=== PATIENT | female | born 1965 | race Caucasian/White ===

== ENCOUNTER 2021-10-23 08:30 | Inpatient (IN) ==
[2021-10-23] MEDS ORDERED: SODIUM CHLORIDE 0.9% 1000ML 1,000 ML IV ONE ×2 (09:18)
[2021-10-23] MEDS ORDERED: PIPERACILLIN/TAZOBACTAM 4.5 GM/120 ML BAG IV STA (09:25)
--- NOTE | 2021-10-23 09:39 | XRay Report ---
XR chest 1V portable CLINICAL HISTORY: SEPSIS. Evaluate cardiopulmonary status COMPARISON STUDY: No previous studies for comparison. TECHNIQUE: 1 view of the chest FINDINGS: Single frontal view of the chest demonstrates the cardiomediastinal silhouette to be within normal li mits. The lungs are clear of alveolar opacities. There is no evidence for pleural effusion. There is no evidence for vascular congestion. There is no acute osseous pathology. IMPRESSION: No acute cardiopulmonary disease. ACT 112: Negative or not required by law. Electronically signed by: Alvaro Meredith M.D. 10/23/2021 9:38 AM
[2021-10-23 09:42] LABS: Eosinophils # (auto) 0.07 K/uL (0-0.5); Eosinophils % (auto) 1.3 %; Hematocrit (blood only) 36.5 % (37-47); Hemoglobin 11.1 g/dL (12.0-16.0); Immature Granulocytes # (auto) 0.01 K/uL (0.00-0.02); Immature Granulocytes % (auto) 0.2 %; Lymphocytes # (auto) 1.02 K/uL (1.2-3.4); Lymphocytes % (auto) 19.4 %; Mean Corpuscular Hemoglobin 28.3 pg (25-34); Mean Corpuscular Hgb Conc 30.4 g/dL (32-36); Mean Corpuscular Volume 93.1 fL (80-100); Mean Platelet Volume 10.3 fL (7.4-10.4); Monocytes # (auto) 0.53 K/uL (0.11-0.59); Monocytes % (auto) 10.1 %; Neutrophils # (auto) 3.64 K/uL (1.4-6.5); Platelet Count 316 K/uL (130-400); RDW Coefficient of Variation 14.7 % (11.5-14.5); RDW Standard Deviation 49.5 fL (36.4-46.3); Red Blood Count 3.92 M/uL (4.2-5.4); White Blood Count 5.27 K/uL (4.8-10.8)
[2021-10-23] MEDS ORDERED: DAPTOmycin 350 MG in SYRINGE 0 ML IV ONE (09:45)
[2021-10-23 10:06] LABS: Albumin Globulin Ratio 0.6 (0.9-2); Albumin Level 2.9 gm/dl (3.4-5.0); BUN Creatinine Ratio 13.3 (10-20); Bilirubin,Total 0.3 mg/dl (0.2-1); Calcium 8.7 mg/dl (8.5-10.1); Creatinine Clr Calc Pharmacy 80.4 ml/min; Est GFR (African American) 94.2 ml/min; Est GFR (Non-African American) 81.3 ml/min; Globulin 4.5 gm/dl (2.5-4.0); Magnesium 2.4 mg/dl (1.8-2.4); Potassium 4.1 mmol/L (3.5-5.1); Total Protein 7.4 gm/dl (6.4-8.2)
--- NOTE | 2021-10-23 10:56 | Emergency Department Note ---
History of Present Illness General Chief complaint: Infection, Wound Stated complaint: INFECTED SORES ON BOTTOM Time Seen by Provider: 10/23/21 08:51 History of Present Illness Maximum Pain Intensity: 8 56-year-old female, history of multiple sclerosis, who presents to the emergency department with complaint of a buttock wound that has been ongoing for the past few weeks. The patient reports that she had a telehealth visit with her PCP last Sunday, and was provided a prescription for a cream to the region. The reports that the wound has very quickly and significantly worsened. The did try to have the patient come into the emergency department a few days ago, but she refused because of the holiday. The patient reports that she has generalized numbness/neuropathy from her multiple sclerosis. Tetanus immunization is up-to-date. The patient currently denies any pain. The patient reports that she has felt a little weaker lately. She has not felt febrile or chilled, however has not checked her temperature at home. Home Medications Medication Instructions Recorded Confirmed Type cholecalciferol (vitamin D3) 25 25 mcg PO DAILY 10/23/21 10/23/21 History mcg (1,000 unit) tablet (Vitamin D3) cyanocobalamin (vitamin B-12) 1 mcg SUBCUT MONTHLY 10/23/21 10/23/21 History 1,000 mcg/mL injection solution gabapentin 800 mg tablet 800 mg PO UD 10/23/21 10/23/21 History glatiramer 40 mg/mL subcutaneous 40 mg SUBCUT MOWEFR 10/23/21 10/23/21 History syringe hydrochlorothiazide 25 mg tablet 25 mg PO DAILY 10/23/21 10/23/21 History levothyroxine 100 mcg tablet 100 mcg PO DAILY 10/23/21 10/23/21 History oxybutynin chloride 5 mg tablet 5 mg PO QID 10/23/21 10/23/21 History sertraline 100 mg tablet 100 mg PO DAILY 10/23/21 10/23/21 History tizanidine 4 mg tablet 4 mg PO QID 10/23/21 10/23/21 History Allergies Allergy/AdvReac Type Severity Reaction Status Date / Time Penicillins AdvReac Gastrointestinal Verified 10/23/21 09:18 Upset Past Med/Surg History Medical History Depression Hypothyroidism (acquired) Multiple sclerosis Surgical History No significant past surgical history Family History Mother Lung cancer Social History (Updated 10/23/21 @ 15:04 by Alex Jones) Smoking Status: Never smoker Hx Alcohol Use: No marital status: Current Living Situation: Spouse current occupational status: unemployed and disabled Feels Safe at Home: Yes Review of Systems 10 system review was performed and was negative except for pertinent positives and negatives as indicated in history of present illness Physical Exam Vital Signs Vital Signs - 24 hr 10/23/21 08:36 10/23/21 09:38 10/23/21 09:47 Temperature 36.5 C Temperature Source Temporal Artery Scan Pulse Rate 86 63 Pulse Rate [Apical] 62 Pulse Rate from SpO2 Sensor 63 Respiratory Rate 18 20 16 Respiratory Effort / Characteristics Blood Pressure 126/77 Blood Pressure [Left Arm] 112/62 Blood Pressure Mean 93 Blood Pressure Mean [Left Arm] 78 Blood Pressure Position Sitting Pulse Oximetry 96 96 95 Oxygen Delivery Method Room Air Room Air Sepsis Recent Fever Within 48 Hours No Sepsis New/Unexplained Change in Mental Status No Sepsis Action Taken by Nursing No Action Required 10/23/21 10:00 10/23/21 10:15 10/23/21 10:30 Temperature Temperature Source Pulse Rate 63 61 63 Pulse Rate [Apical] Pulse Rate from SpO2 Sensor 63 61 65 Respiratory Rate 18 19 17 Respiratory Effort / Characteristics Blood Pressure 116/66 119/68 Blood Pressure [Left Arm] 125/69 Blood Pressure Mean 82 85 Blood Pressure Mean [Left Arm] 87 Blood Pressure Position Pulse Oximetry 98 98 96 Oxygen Delivery Method Sepsis Recent Fever Within 48 Hours Sepsis New/Unexplained Change in Mental Status Sepsis Action Taken by Nursing 10/23/21 10:45 10/23/21 11:18 10/23/21 11:30 Temperature Temperature Source Pulse Rate 62 79 78 Pulse Rate [Apical] 61 Pulse Rate from SpO2 Sensor 62 78 74 Respiratory Rate 17 20 17 Respiratory Effort / Characteristics Blood Pressure 123/72 Blood Pressure [Left Arm] 123/72 Blood Pressure Mean 89 Blood Pressure Mean [Left Arm] 89 Blood Pressure Position Pulse Oximetry 97 97 98 Oxygen Delivery Method Room Air Sepsis Recent Fever Within 48 Hours Sepsis New/Unexplained Change in Mental Status Sepsis Action Taken by Nursing 10/23/21 11:45 10/23/21 12:00 Temperature Temperature Source Pulse Rate 65 71 Pulse Rate [Apical] Pulse Rate from SpO2 Sensor 68 Respiratory Rate 15 16 Respiratory Effort / Characteristics Non-Labored Blood Pressure 131/90 Blood Pressure [Left Arm] Blood Pressure Mean 103 Blood Pressure Mean [Left Arm] Blood Pressure Position Pulse Oximetry 97 Oxygen Delivery Method Sepsis Recent Fever Within 48 Hours Sepsis New/Unexplained Change in Mental Status Sepsis Action Taken by Nursing CONSTITUTIONAL: Healthy and well nourished. Alert and oriented X 3. Patient does not appear acutely ill or toxic. HEENT: No scleral icterus or conjunctival injection/pallor. Mucous membranes are moist. NECK: Full active range of motion without discomfort. LYMPHATICS: No cervical chain adenopathy. RESPIRATORY: Clear to auscultation bilaterally with no wheezing, crackles, rhonchi or stridor. CARDIOVASCULAR: Regular rate and rhythm with no murmurs, rubs or gallops. GASTROINTESTINAL: Bowel sounds present in all quadrants. Abdomen is soft and nontender to palpation. MUSCULOSKELETAL: Full range of motion of all joints without discomfort. Pelvis is stable with rock. Negative logroll of bilateral hips. No focal tenderness to palpation through the lower central thoracolumbar spine. INTEGUMENTARY: Examination shows significant wound breakdown of the gluteal cleft and medial buttocks bilaterally. Significant proteinaceous discharge with underlying erythema is noted. Foul odor is also appreciated. No obvious perianal erythema or edema. No obvious extension to the perineum. HEMATOLOGIC: No ecchymosis or petechiae. PSYCHIATRIC: Flat affect. NEUROLOGIC: Lower extremities are grossly sensory intact. Course Course Patient history and physical exam were performed. Nurses notes were reviewed. Vital signs were reviewed and were normal. IV access was established, and labs were drawn, including blood cultures x2. I also collected and ordered surface wound cultures. Choice of appropriate antibiotics were discussed with our pharmacist, who has recommended IV Zosyn and daptomycin. The patient was hydrated with a 2 L normal saline bolus. An ECG was performed, showing a normal sinus rhythm. The patient was placed on cardiac tech while in the emergency department. Portable chest x-ray was performed and was normal. Review of labs shows a relatively normal CBC other than mild anemia with a hemoglobin of 11.1. CMP was also grossly normal. Serum lactate and procalcitonin are normal. Urinalysis is not suggestive of infection. COVID-19 RNA test was also negative. CT with IV contrast of the pelvis shows a notable cellulitis of the gluteal cleft, without evidence for abscess or osteomyelitis of the sacrum or coccyx. Findings were discussed with the patient, as well as Dr. Arellano, ED attending physician, who also agrees with admission for IV antibiotics and possible surgical debridement and wound management evaluation. The patient was in agreement with admission. The case was then further discussed with the [facility] team, who evaluated the patient for admission. Please see their dictation for further treatment and final disposition. Administered Medications Discontinued Medications Piperacillin Sod/Tazobactam Sod (Zosyn) 4.5 gm in 120 mls @ 240 mls/hr IV NOW STA Stop: 10/23/21 09:54 Last Infusion: 10/23/21 10:49 Dose: 0 mls/hr Documented by: [id number] Admin: 10/23/21 09:58 Dose: 240 mls/hr Documented by: [id number] Sodium Chloride (Nss 1000ml) 1,000 mls @ 999 mls/hr IV .Q1H1M ONE Stop: 10/23/21 10:18 Last Infusion: 10/23/21 12:46 Dose: 0 mls/hr Documented by: [id number] Admin: 10/23/21 09:57 Dose: 999 mls/hr Documented by: [id number] Sodium Chloride (Nss 1000ml) 1,000 mls @ 999 mls/hr IV .Q1H1M ONE Stop: 10/23/21 10:18 Last Admin: 10/23/21 12:50 Dose: 999 mls/hr Documented by: [id number] Daptomycin 350 mg/ Syringe 7 mls @ 3.5 mls/min IV NOW ONE; Protocol Stop: 10/23/21 09:46 Last Admin: 10/23/21 10:23 Dose: 3.5 mls/min Documented by: [id number] Ioversol (Optiray 320 100ml) 93 ml IV ONCE ONE Stop: 10/23/21 11:15 Last Admin: 10/23/21 11:15 Dose: 93 ml Documented by: [id number] Medical Decision Making Medical Records Attestation: I reviewed the patient's medical records. Home Medications Current Medication List: was personally reviewed by me Laboratory Data Attestation: I reviewed the patient's lab results. Result diagrams: 10/23/21 09:29 10/23/21 09:29 Lab Results 10/23/21 10/23/21 10/23/21 Range/Units 09:29 09:29 09:29 WBC 5.27 (4.8-10.8) K/uL RBC 3.92 L (4.2-5.4) M/uL Hgb 11.1 L (12.0-16.0) g/dL Hct 36.5 L (37-47) % MCV 93.1 (80-100) fL MCH 28.3 (25-34) pg MCHC 30.4 L (32-36) g/dL RDW Std Deviation 49.5 H (36.4-46.3) fL RDW Coeff of Shreya 14.7 H (11.5-14.5) % Plt Count 316 (130-400) K/uL MPV 10.3 (7.4-10.4) fL Immature Gran % (Auto) 0.2 % Neut % (Auto) 69.0 % Lymph % (Auto) 19.4 % [place] % (Auto) 10.1 % Eos % (Auto) 1.3 % Baso % (Auto) 0.0 % Neut # (Auto) 3.64 (1.4-6.5) K/uL Lymph # (Auto) 1.02 L (1.2-3.4) K/uL [place] # (Auto) 0.53 (0.11-0.59) K/uL Eos # (Auto) 0.07 (0-0.5) K/uL Baso # (Auto) 0.00 (0-0.2) K/uL Immature Gran # (Auto) 0.01 (0.00-0.02) K/uL PT Cancelled INR Cancelled APTT Cancelled PTT Ratio Cancelled Sodium (136-145) mmol/L Potassium (3.5-5.1) mmol/L Chloride (98-107) mmol/L Carbon Dioxide (21-32) mmol/L Anion Gap (3-11) BUN (7-18) mg/dl Creatinine (0.6-1.2) mg/dl Est Cr Clr Drug Dosing ml/min Est GFR ( Amer) ml/min Est GFR (Non-Af Amer) ml/min BUN/Creatinine Ratio (10-20) Glucose (70-99) mg/dl Lactate (0.4-2.0) mmol/L Calcium (8.5-10.1) mg/dl Magnesium (1.8-2.4) mg/dl Total Bilirubin (0.2-1) mg/dl AST (15-37) U/L ALT (12-78) Alkaline Phosphatase (45-117) U/L Total Protein (6.4-8.2) gm/dl Albumin (3.4-5.0) gm/dl Globulin (2.5-4.0) gm/dl Albumin/Globulin Ratio (0.9-2) Procalcitonin Cancelled Specimen Hemolysis Urine Color Urine Appearance (Clear) Urine pH (4.5-7.5) Ur Specific [place] (1.000-1.030) Urine Protein (Negative) Urine Glucose (UA) (Negative) Urine Ketones (Negative) Urine Blood (Negative) Urine Nitrite (Negative) Urine Bilirubin (Negative) Urine Urobilinogen (Negative) Ur Leukocyte Esterase (Negative) Urine WBC (Auto) (0-5) /hpf Urine RBC (Auto) (0-4) /hpf U Hyaline Cast (Auto) (0-5) /lpf U Epithel Cells (Auto) (0-5) /lpf Urine Bacteria (Auto) (Negative) SARS-CoV-2, RNA, NAAT (NEGATIVE) 10/23/21 10/23/21 10/23/21 Range/Units 09:29 09:29 09:52 WBC (4.8-10.8) K/uL RBC (4.2-5.4) M/uL Hgb (12.0-16.0) g/dL Hct (37-47) % MCV (80-100) fL MCH (25-34) pg MCHC (32-36) g/dL RDW Std Deviation (36.4-46.3) fL RDW Coeff of Shreya (11.5-14.5) % Plt Count (130-400) K/uL MPV (7.4-10.4) fL Immature Gran % (Auto) % Neut % (Auto) % Lymph % (Auto) % [place] % (Auto) % Eos % (Auto) % Baso % (Auto) % Neut # (Auto) (1.4-6.5) K/uL Lymph # (Auto) (1.2-3.4) K/uL [place] # (Auto) (0.11-0.59) K/uL Eos # (Auto) (0-0.5) K/uL Baso # (Auto) (0-0.2) K/uL Immature Gran # (Auto) (0.00-0.02) K/uL PT INR APTT PTT Ratio Sodium 140 (136-145) mmol/L Potassium 4.1 (3.5-5.1) mmol/L Chloride 106 (98-107) mmol/L Carbon Dioxide 30 (21-32) mmol/L Anion Gap 4.0 (3-11) BUN 11 (7-18) mg/dl Creatinine 0.80 (0.6-1.2) mg/dl Est Cr Clr Drug Dosing 80.4 ml/min Est GFR ( Amer) 94.2 ml/min Est GFR (Non-Af Amer) 81.3 ml/min BUN/Creatinine Ratio 13.3 (10-20) Glucose 92 (70-99) mg/dl Lactate 1.3 (0.4-2.0) mmol/L Calcium 8.7 (8.5-10.1) mg/dl Magnesium 2.4 (1.8-2.4) mg/dl Total Bilirubin 0.3 (0.2-1) mg/dl AST 35 (15-37) U/L ALT 21 (12-78) Alkaline Phosphatase 89 (45-117) U/L Total Protein 7.4 (6.4-8.2) gm/dl Albumin 2.9 L (3.4-5.0) gm/dl Globulin 4.5 H (2.5-4.0) gm/dl Albumin/Globulin Ratio 0.6 L (0.9-2) Procalcitonin Specimen Hemolysis Urine Color Urine Appearance (Clear) Urine pH (4.5-7.5) Ur Specific [place] (1.000-1.030) Urine Protein (Negative) Urine Glucose (UA) (Negative) Urine Ketones (Negative) Urine Blood (Negative) Urine Nitrite (Negative) Urine Bilirubin (Negative) Urine Urobilinogen (Negative) Ur Leukocyte Esterase (Negative) Urine WBC (Auto) (0-5) /hpf Urine RBC (Auto) (0-4) /hpf U Hyaline Cast (Auto) (0-5) /lpf U Epithel Cells (Auto) (0-5) /lpf Urine Bacteria (Auto) (Negative) SARS-CoV-2, RNA, NAAT NEGATIVE (NEGATIVE) 10/23/21 10/23/21 10/23/21 Range/Units 11:39 11:48 11:48 WBC (4.8-10.8) K/uL RBC (4.2-5.4) M/uL Hgb (12.0-16.0) g/dL Hct (37-47) % MCV (80-100) fL MCH (25-34) pg MCHC (32-36) g/dL RDW Std Deviation (36.4-46.3) fL RDW Coeff of Shreya (11.5-14.5) % Plt Count (130-400) K/uL MPV (7.4-10.4) fL Immature Gran % (Auto) % Neut % (Auto) % Lymph % (Auto) % [place] % (Auto) % Eos % (Auto) % Baso % (Auto) % Neut # (Auto) (1.4-6.5) K/uL Lymph # (Auto) (1.2-3.4) K/uL [place] # (Auto) (0.11-0.59) K/uL Eos # (Auto) (0-0.5) K/uL Baso # (Auto) (0-0.2) K/uL Immature Gran # (Auto) (0.00-0.02) K/uL PT 10.0 INR 1.0 APTT 26.2 PTT Ratio 1.0 Sodium (136-145) mmol/L Potassium (3.5-5.1) mmol/L Chloride (98-107) mmol/L Carbon Dioxide (21-32) mmol/L Anion Gap (3-11) BUN (7-18) mg/dl Creatinine (0.6-1.2) mg/dl Est Cr Clr Drug Dosing ml/min Est GFR ( Amer) ml/min Est GFR (Non-Af Amer) ml/min BUN/Creatinine Ratio (10-20) Glucose (70-99) mg/dl Lactate (0.4-2.0) mmol/L Calcium (8.5-10.1) mg/dl Magnesium (1.8-2.4) mg/dl Total Bilirubin (0.2-1) mg/dl AST (15-37) U/L ALT (12-78) Alkaline Phosphatase (45-117) U/L Total Protein (6.4-8.2) gm/dl Albumin (3.4-5.0) gm/dl Globulin (2.5-4.0) gm/dl Albumin/Globulin Ratio (0.9-2) Procalcitonin < 0.05 Specimen Hemolysis Urine Color Yellow Urine Appearance Clear (Clear) Urine pH >= 9.0 H (4.5-7.5) Ur Specific [place] 1.019 (1.000-1.030) Urine Protein Negative (Negative) Urine Glucose (UA) Negative (Negative) Urine Ketones Negative (Negative) Urine Blood Negative (Negative) Urine Nitrite Negative (Negative) Urine Bilirubin Negative (Negative) Urine Urobilinogen Negative (Negative) Ur Leukocyte Esterase Trace H (Negative) Urine WBC (Auto) 1-5 (0-5) /hpf Urine RBC (Auto) 0-4 (0-4) /hpf U Hyaline Cast (Auto) 1-5 (0-5) /lpf U Epithel Cells (Auto) >30 H (0-5) /lpf Urine Bacteria (Auto) Negative (Negative) SARS-CoV-2, RNA, NAAT (NEGATIVE) Imaging Data Attestation: I personally reviewed and interpreted this imaging study as follows: My Impression: My interpretation of a portable chest x-ray does not show any consolidations, pneumothorax or cardiac prominence. My interpretation of a CT with IV contrast of the pelvis shows a notable cellulitis and ulceration with no obvious abscess or osteomyelitis of the underlying sacrum or coccyx. Radiologist reports were also reviewed. Radiologist's Impression: Chest X-Ray 10/23/21 09:17 XR chest 1V portable CLINICAL HISTORY: SEPSIS. Evaluate cardiopulmonary status COMPARISON STUDY: No previous studies for comparison. TECHNIQUE: 1 view of the chest FINDINGS: Single frontal view of the chest demonstrates the cardiomediastinal silhouette to be within normal limits. The lungs are clear of alveolar opacities. There is no evidence for pleural effusion. There is no evidence for vascular congestion. There is no acute osseous pathology. IMPRESSION: No acute cardiopulmonary disease. ACT 112: Negative or not required by law. Electronically signed by: Alvaro Meredith M.D. 10/23/2021 9:[address] 10/23/21 09:21 CT pelvis w/IV con only CLINICAL HISTORY: Gluteal cleft breakdown, h/o MS in wheelchair . Patient reports infected, painful sores on her buttocks. COMPARISON: None CT DOSE: 587.41 mGy.cm TECHNIQUE: Standard CT of the Pelvis with intravenous contrast was performed. This CT exam was performed using one or more of the following dose reduction techniques: Automated exposure control, adjustment of the mA and/or kV according to patient size, or use of iterative reconstruction technique. CONTRAST: Optiray 320, 93 mL of nonionic intravenous contrast. The patient did not receive oral contrast. FINDINGS: Soft tissues: There is a soft tissue ulceration present at the upper aspect of the patient's buttocks cleft with air present. This extends to the deep fascial plane with the adjacent coccyx. However, no definite evidence for enhancing abscess is seen. Marked cellulitis is seen within the subcutaneous fat. No other definite ulcerations are identified.aaaaaaaaaaaaaaaaaaaaaaaaaaaaaaa. Osseous structures:There is no definite CT evidence for osteomyelitis of the adjacent coccyx. There are prominent degenerative changes present involving the lower lumbar spine. Bowel: The bowel gas pattern is within normal limits without evidence for dilatation or obstruction.. Bladder: There is no focal bladder wall abnormality, calculus or diverticulum. : There is no evidence for pelvic mass or adenopathy. There is evidence for previous hysterectomy. IMPRESSION: 1. CT confirms the presence of a ulceration at the upper aspect of the buttocks cleft with no associated abscess. 2. There is surrounding cellulitis. 3. There is no definite CT evidence for adjacent osteomyelitis of the coccyx. ACT 112: Negative or not required by law. Electronically signed by: Alvaro Meredith M.D. 10/23/2021 11:29 AM ECG Data Attestation: I personally reviewed and interpreted this ECG as follows: Indication: + other (Major skin infection) Rate (beats per minute): 63 Rhythm: + normal sinus ECG Intervals/blocks: + Normal QRS and + Normal QT ECG Bard: + Normal ECG ST segments: + Normal ST segments Comparison ECG Date: no prior available Blood Pressure Blood Pressure Findings: Normal blood pressure MDM Narrative Cardiac monitoring: An order was placed for continuous cardiac monitoring. The monitor shows a rate of 63 bpm with a normal sinus rhythm. senior application security consultant history was reviewed throughout the evaluation, and no dysrhythmias were noted. Patient presents the emergency department for evaluation of a gluteal cleft wound. She does appear to have a notable infection and significant wound break down that may require surgical debridement and/or wound management. Laboratory studies are not suggestive of sepsis at this time. CT imaging does not show evidence for underlying abscess, obvious fistula formation or osteomyelitis. Remaining lab work is otherwise grossly normal. Impression & Plan Cellulitis of multiple sites of buttock, Gluteal cleft wound Discharge Plan Visit Data Chief Complaint: Infection, Wound Stated Complaint: INFECTED SORES ON BOTTOM ED Provider: Puma Arellano ED Midlevel Provider: Alex Jones Discharge Problem: Cellulitis of multiple sites of buttock, Gluteal cleft wound Discharge Instructions Interventions: ED Discharge Assessment Last Done: 10/23/21 15:05
[2021-10-23] MEDS ORDERED: OPTIRAY 320 100ml IV ONE (11:14)
--- NOTE | 2021-10-23 11:30 | CT Scan Report ---
CT pelvis w/IV con only CLINICAL HISTORY: Gluteal cleft breakdown, h/o MS in wheelchair . Patient reports infected, painful s ores on her buttocks. COMPARISON: None CT DOSE: 587.41 mGy.cm TECHNIQUE: Standard CT of the Pelvis with intravenous contrast was performed. This CT exam was performed using one or more of the following dose reduction techniques: Automated ex posure control, adjustment of the mA and/or kV according to patient size, or use of iterative reconst ruction technique. CONTRAST: Optiray 320, 93 mL of nonionic intravenous contrast. The patient did not receive oral cont rast. FINDINGS: Soft tissues: There is a soft tissue ulceration present at the upper aspect of the patient's buttocks cleft with air present. This extends to the deep fascial plane with the adjacent coccyx. However, no definite evidence for enhancing abscess is seen. Marked cellulitis is seen within the subcutaneous f at. No other definite ulcerations are identified.aaaaaaaaaaaaaaaaaaaaaaaaaaaaaaa. Osseous structures:There is no definite CT evidence for osteomyelitis of the adjacent coccyx. There a re prominent degenerative changes present involving the lower lumbar spine. Bowel: The bowel gas pattern is within normal limits without evidence for dilatation or obstruction. . Bladder: There is no focal bladder wall abnormality, calculus or diverticulum. : There is no evidence for pelvic mass or adenopathy. There is evidence for previous hysterectomy. IMPRESSION: 1. CT confirms the presence of a ulceration at the upper aspect of the buttocks cleft with no associa hal abscess. 2. There is surrounding cellulitis. 3. There is no definite CT evidence for adjacent osteomyelitis of the coccyx. ACT 112: Negative or not required by law. Electronically signed by: Alvaro Meredith M.D. 10/23/2021 11:29 AM
[2021-10-23 11:54] LABS: Appearance Urine Clear (Clear); Bacteria Urine Automated Negative (Negative); Bilirubin Urine Negative (Negative); Blood Urine Negative (Negative); Color Urine Yellow; Epithelial Cell Urine Auto >30 /lpf (0-5); Glucose Urine UA Negative (Negative); Ketones Urine Negative (Negative); Leukocyte Esterase Urine Trace (Negative); Nitrite Urine Negative (Negative); Protein Urine Negative (Negative); RBC Urine Automated 0-4 /hpf (0-4); Specific Gravity Urine 1.019 (1.000-1.030); Urobilinogen Urine Negative (Negative); pH Urine >= 9.0 (4.5-7.5)
--- NOTE | 2021-10-23 11:59 | Electrocardiogram Report ---
Test Reason : Blood Pressure : / mmHG Vent. Rate : 063 BPM Atrial Rate : 063 BPM P-R Int : 140 ms QRS Dur : 072 ms QT Int : 430 ms P-R-T Axes : 001 032 036 degrees QTc Int : 440 ms Normal sinus rhythm Normal ECG No previous ECGs available Confirmed by Edmond Goldman [id number]) on 10/23/2021 11:58:53 AM Referred By: REFERRED SELF Confirmed By:Edmond Goldman
[2021-10-23 12:09] LABS: Partial Thromboplastin Time 26.2 Seconds (21.0-31.0)
--- NOTE | 2021-10-23 13:38 | History & Physical Report ---
Date of Service October 23, 2021 Assessment & Plan (1) Gluteal cleft wound: Plan: -Admit to [facility] -Presenting from home with reports of worsening gluteal cleft wound x2 weeks. -In the ED, patient is hemodynamically stable and does not appear septic. -CT pelvis negative for abscess and osteomyelitis -S/p Zosyn and daptomycin in the ED, continue with -Wound culture -General surgery consult for possible debridement -Wound care consult (2) Multiple sclerosis: Plan: -Follows with [facility] neurology -Continue home meds (3) Hypothyroidism (acquired): Plan: -Continue levothyroxine (4) Depression: Plan: -Continue home meds (5) DVT prophylaxis: Plan: -SQ Lovenox History of Present Illness Chief Complaint: Buttock wound Primary Care Provider: ADARSH Payne 56-year-old female with PMH multiple sclerosis, hypothyroidism, depression, and other problems to below who presents to the ED for evaluation of a buttock wound. Patient is bed/chair bound from multiple sclerosis. She is able to transfer via sliding. Patient is mostly independent in her care. Reports developing a sacral/buttock wound about 2 weeks ago. Wound has been progressively getting worse. Patient denies fevers and chills. Denies chest pain or shortness of breath. No lightheadedness, dizziness, diaphoresis, syncopal events. Denies abdominal pain, nausea, vomiting, diarrhea. Urinary symptoms. In the ED, patient is hemodynamically stable and labs are unremarkable. Exam reveals a large gluteal cleft wound. CT pelvis shows the presence of a ulceration at the upper aspect of the buttocks cleft with no associated abscess. There is surrounding cellulitis. No CT evidence for osteomyelitis. Patient was given IV daptomycin, IV Zosyn, IVF. Allergies Allergy/AdvReac Type Severity Reaction Status Date / Time Penicillins AdvReac Gastrointestinal Verified 10/23/21 09:18 Upset Home Medications Medication Instructions Recorded Confirmed Type cholecalciferol (vitamin D3) 25 25 mcg PO DAILY 10/23/21 10/23/21 History mcg (1,000 unit) tablet (Vitamin D3) cyanocobalamin (vitamin B-12) 1 mcg SUBCUT MONTHLY 10/23/21 10/23/21 History 1,000 mcg/mL injection solution gabapentin 800 mg tablet 800 mg PO UD 10/23/21 10/23/21 History glatiramer 40 mg/mL subcutaneous 40 mg SUBCUT MOWEFR 10/23/21 10/23/21 History syringe hydrochlorothiazide 25 mg tablet 25 mg PO DAILY 10/23/21 10/23/21 History levothyroxine 100 mcg tablet 100 mcg PO DAILY 10/23/21 10/23/21 History oxybutynin chloride 5 mg tablet 5 mg PO QID 10/23/21 10/23/21 History sertraline 100 mg tablet 100 mg PO DAILY 10/23/21 10/23/21 History tizanidine 4 mg tablet 4 mg PO QID 10/23/21 10/23/21 History Past Med/Surg History Medical History Depression Hypothyroidism (acquired) Multiple sclerosis Surgical History No significant past surgical history Family History Mother Lung cancer Social History (Updated 10/23/21 @ 15:04 by Alex Jones) Smoking Status: Never smoker Hx Alcohol Use: No marital status: Current Living Situation: Spouse current occupational status: unemployed and disabled Feels Safe at Home: Yes Review of Systems Review of Systems: ROS per HPI, all other systems reviewed and negative Physical Exam Constitutional: WD/WN, vitals as above Eyes: PERRL, conjunctivae normal, anicteric sclerae ENMT: external ear and nose normal, oropharynx normal Respiratory: normal respiratory effort, lungs clear to auscultation Cardiovascular: Rate/Rhythm: regular rate and regular rhythm Vessels: normal peripheral pulses Extremities: no edema Gastrointestinal (Abdomen): normal bowel sounds, soft, nontender, no hepatosplenomegaly Musculoskeletal: Extremities: no cyanosis and no clubbing Chronic BL LE weakness Skin: no rashes, warm and dry Large, deep, gluteal cleft wound with surrounding erythema. Foul-smelling. Neurologic: PERRL, EOMI, accommodation nl, no face palsy, no dysarthria Psychiatric: A+Ox3, euthymic affect Results & Data Results & Data ([facility]) Vital Signs (Past 12 Hours) Vital Signs Temp Pulse Pulse Resp BP BP Pulse Ox 10/23/21 13:15 77 18 155/82 H 98 10/23/21 13:00 77 17 155/95 H 98 10/23/21 12:45 75 18 154/79 H 98 10/23/21 12:30 75 19 96 10/23/21 12:15 68 16 159/86 H 97 10/23/21 12:00 71 16 10/23/21 11:45 65 15 131/90 97 10/23/21 11:30 78 17 98 10/23/21 11:18 79 20 97 10/23/21 10:45 62 61 17 123/72 123/72 97 10/23/21 10:30 63 17 125/69 96 10/23/21 10:15 61 19 119/68 98 10/23/21 10:00 63 18 116/66 98 10/23/21 09:47 63 16 95 10/23/21 09:38 62 20 112/62 96 10/23/21 08:36 36.5 C 86 18 126/77 96 Laboratory Results Short CBC 10/23/21 Range/Units 09:29 WBC 5.27 (4.8-10.8) K/uL Hgb 11.1 L (12.0-16.0) g/dL Hct 36.5 L (37-47) % Plt Count 316 (130-400) K/uL BMP 10/23/21 09:29 Sodium 140 Potassium 4.1 Chloride 106 Carbon Dioxide 30 BUN 11 Creatinine 0.80 Glucose 92 Calcium 8.7 Liver Function 10/23/21 Range/Units 09:29 Total Bilirubin 0.3 (0.2-1) mg/dl AST 35 (15-37) U/L ALT 21 (12-78) Alkaline Phosphatase 89 (45-117) U/L Albumin 2.9 L (3.4-5.0) gm/dl Urine 10/23/21 Range/Units 11:39 Urine Color Yellow Urine Appearance Clear (Clear) Urine pH >= 9.0 H (4.5-7.5) Ur Specific [place] 1.019 (1.000-1.030) Urine Protein Negative (Negative) Urine Glucose (UA) Negative (Negative) Diagnostic Findings Chest X-Ray 10/23/21 09:17 XR chest 1V portable CLINICAL HISTORY: SEPSIS. Evaluate cardiopulmonary status COMPARISON STUDY: No previous studies for comparison. TECHNIQUE: 1 view of the chest FINDINGS: Single frontal view of the chest demonstrates the cardiomediastinal silhouette to be within normal limits. The lungs are clear of alveolar opacities. There is no evidence for pleural effusion. There is no evidence for vascular congestion. There is no acute osseous pathology. IMPRESSION: No acute cardiopulmonary disease. ACT 112: Negative or not required by law. Electronically signed by: Alvaro Meredith M.D. 10/23/2021 9:[address] 10/23/21 09:21 CT pelvis w/IV con only CLINICAL HISTORY: Gluteal cleft breakdown, h/o MS in wheelchair . Patient reports infected, painful sores on her buttocks. COMPARISON: None CT DOSE: 587.41 mGy.cm TECHNIQUE: Standard CT of the Pelvis with intravenous contrast was performed. This CT exam was performed using one or more of the following dose reduction techniques: Automated exposure control, adjustment of the mA and/or kV according to patient size, or use of iterative reconstruction technique. CONTRAST: Optiray 320, 93 mL of nonionic intravenous contrast. The patient did not receive oral contrast. FINDINGS: Soft tissues: There is a soft tissue ulceration present at the upper aspect of the patient's buttocks cleft with air present. This extends to the deep fascial plane with the adjacent coccyx. However, no definite evidence for enhancing abscess is seen. Marked cellulitis is seen within the subcutaneous fat. No other definite ulcerations are identified.aaaaaaaaaaaaaaaaaaaaaaaaaaaaaaa. Osseous structures:There is no definite CT evidence for osteomyelitis of the adjacent coccyx. There are prominent degenerative changes present involving the lower lumbar spine. Bowel: The bowel gas pattern is within normal limits without evidence for dilatation or obstruction.. Bladder: There is no focal bladder wall abnormality, calculus or diverticulum. : There is no evidence for pelvic mass or adenopathy. There is evidence for previous hysterectomy. IMPRESSION: 1. CT confirms the presence of a ulceration at the upper aspect of the buttocks cleft with no associated abscess. 2. There is surrounding cellulitis. 3. There is no definite CT evidence for adjacent osteomyelitis of the coccyx. ACT 112: Negative or not required by law. Electronically signed by: Alvaro Meredith M.D. 10/23/2021 11:29 AM Code Status & VTE Plan VTE Prophylaxis Plan VTE Prophylaxis will be ordered: Yes Supervising Physician Co-Signing Physician Notes Attending addendum: The patient was seen and examined in emergency room in presence of the She has multiple sclerosis and is wheelchair-bound and takes care of herself most of the time Complains to have buttock pain with an ulcer for the last 2 weeks and initially did not want to come to the hospital Today she is here with increasing wound and increasing pain but no fever and no chills On examination Lying in bed comfortably Hemodynamically stable with blood pressure on the upper side at 155/82 Chestclear to auscultate bilaterally HeartS1-S2, regular Abdomendistended, soft with normal bowel sound Examination of the buttockdid show severe necrotic and inflammatory ulcers involving the cleft with some surrounding redness and inflammation CNSalert, awake and oriented x3 Her admission labs and imaging studies reviewed Has severe decubitus ulcer involving the cleft and lower part of sacrum without any evidence of osteomyelitis and/or abscess formation Surgery has been consulted for possible debridement and antibiotic has been started Agree with assessment and plan as outlined above by Debbie Wood
[2021-10-23] MEDS ORDERED: PIPERACILL/TAZOBAC CONSULT ACTIVE PRN (15:04)
[2021-10-23] MEDS ORDERED: GABAPENTIN 800 MG TAB PO ONE (16:15)
[2021-10-23] MEDS: tiZANidine HCL 4 MG TABLET PO SCH ×2 (16:30→20:53)
[2021-10-23] MEDS: OXYBUTYNIN CHLORIDE 5 MG TAB PO SCH ×2 (16:32→20:54)
[2021-10-23] MEDS: PIPERACILLIN/TAZOBACTAM 3.375 GM in DEXTROSE 5% 100 ML IV SCH ×2 (16:33→23:32)
[2021-10-23] MEDS: ENOXAPARIN INJ 40 MG/0.4 ML SYR SQ SCH (20:52)
[2021-10-23] MEDS: GABAPENTIN 800 MG TAB PO SCH (20:53)
[2021-10-24 06:21] LABS: Hematocrit (blood only) 34.6 % (37-47); Hemoglobin 10.8 g/dL (12.0-16.0); Mean Corpuscular Hemoglobin 28.7 pg (25-34); Mean Corpuscular Hgb Conc 31.2 g/dL (32-36); Mean Platelet Volume 10.4 fL (7.4-10.4); Platelet Count 320 K/uL (130-400); RDW Coefficient of Variation 14.7 % (11.5-14.5); RDW Standard Deviation 49.7 fL (36.4-46.3); Red Blood Count 3.76 M/uL (4.2-5.4); White Blood Count 4.43 K/uL (4.8-10.8)
[2021-10-24] MEDS: LEVOTHYROXINE SODIUM 100 MCG TABLET PO SCH (06:33)
[2021-10-24 06:49] LABS: BUN Creatinine Ratio 10.4 (10-20); Calcium 8.6 mg/dl (8.5-10.1); Creatinine Clr Calc Pharmacy 86.9 ml/min; Est GFR (African American) 103.5 ml/min; Est GFR (Non-African American) 89.3 ml/min; Potassium 4.1 mmol/L (3.5-5.1)
[2021-10-24] MEDS: tiZANidine HCL 4 MG TABLET PO SCH ×4 (08:46→21:05)
[2021-10-24] MEDS: OXYBUTYNIN CHLORIDE 5 MG TAB PO SCH ×4 (08:46→21:05)
[2021-10-24] MEDS: SERTRALINE HCL 100 MG TABLET PO SCH (08:47)
[2021-10-24] MEDS: hydroCHLOROthiazide 25 MG TAB PO SCH (08:48)
[2021-10-24] MEDS: DAPTOmycin 250 MG in SYRINGE 0 ML IV SCH (08:49)
[2021-10-24] MEDS: GABAPENTIN 800 MG TAB PO SCH ×3 (08:49→21:05)
[2021-10-24] MEDS: PIPERACILLIN/TAZOBACTAM 3.375 GM in DEXTROSE 5% 100 ML IV SCH ×2 (08:50→16:53)
--- NOTE | 2021-10-24 10:13 | Surgery Consultation ---
Date of Consultation October 24, 2021 Assessment & Plan (1) Gluteal cleft wound: Large gluteal cleft wound present No associated abscess but cellulitis is present Mild areas of necrosis and undermining on examination. Plan: Wound care nurse consulted, likely will need debridement due to few areas of mild necrosis will await wound care evaluation could possibly do bedside debridement continue IV antibiotics pain management as needed frequent turning and positioning (2) Cellulitis of multiple sites of buttock: Dr. Will has seen, examined patient and recommended plan above. History of Present Illness Reason for Consultation: Buttock wound Requesting Physician: ADARSH Bceker Attending Physician: Perry Wood MD History of Present Illness Guerline is a 56 year-old female with history of multiple sclerosis who is wheelchair bound presented to emergency room yesterday with complaint of wound of her buttocks. She states she contracted COVID after Thanksgiving and became very weak afterwards. States she wears depend underwear and ripped it off one day and though she ripped her skin off which was the start of these wounds. Denies of any fever or chills. Bowels are regular. Has some pain associated wi th the wound. Allergies Allergy/AdvReac Type Severity Reaction Status Date / Time Penicillins AdvReac Gastrointestinal Verified 10/23/21 09:18 Upset Home Medications Medication Instructions Recorded Confirmed Type cholecalciferol (vitamin D3) 25 25 mcg PO DAILY 10/23/21 10/23/21 History mcg (1,000 unit) tablet (Vitamin D3) cyanocobalamin (vitamin B-12) 1 mcg SUBCUT MONTHLY 10/23/21 10/23/21 History 1,000 mcg/mL injection solution gabapentin 800 mg tablet 800 mg PO UD 10/23/21 10/23/21 History glatiramer 40 mg/mL subcutaneous 40 mg SUBCUT MOWEFR 10/23/21 10/23/21 History syringe hydrochlorothiazide 25 mg tablet 25 mg PO DAILY 10/23/21 10/23/21 History levothyroxine 100 mcg tablet 100 mcg PO DAILY 10/23/21 10/23/21 History oxybutynin chloride 5 mg tablet 5 mg PO QID 10/23/21 10/23/21 History sertraline 100 mg tablet 100 mg PO DAILY 10/23/21 10/23/21 History tizanidine 4 mg tablet 4 mg PO QID 10/23/21 10/23/21 History Patient History Medical History Depression Hypothyroidism (acquired) Multiple sclerosis Surgical History No significant past surgical history Family History Mother Lung cancer Social History (Updated 10/23/21 @ 15:04 by Alex Jones) Smoking Status: Never smoker Hx Alcohol Use: No Hx Substance Use: No Preferred Language: French Communication Ability: Effective 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 Beliefs That Will Affect Care: None marital status: Current Living Situation: Spouse and Family Current Living Situation Comment: spouse and daughter current occupational status: unemployed and disabled Feels Safe at Home: Yes Safety Concerns: Feels Safe At This Time Assistive Devices: Denture - Upper and Wheelchair Review of Systems Review of Systems: All systems reviewed & are unremarkable except as noted in HPI & below Physical Exam Constitutional: well developed and well nourished; no acute distress and not ill appearing Respiratory: normal respiratory effort; no respiratory distress Gastrointestinal (Abdomen): There is large gluteal cleft wound with fibrinous tissue and some mild areas of necrosis. There is undermining about 2-3 mm of superior aspect of wound. Foul smell present. Skin: no rashes, warm and dry Psychiatric: Orientation: alert and oriented x 3 Results & Data ([facility]) Vital Signs (Past 12 Hours) Vital Signs Pulse Resp BP Pulse Ox 10/24/21 08:41 76 19 168/93 H 95 10/24/21 06:24 76 18 161/89 H 95 10/23/21 23:39 68 18 107/53 L 95 Laboratory Results 10/24/21 10/24/21 10/23/21 Range/Units 05:22 05:16 11:48 WBC 4.43 L (4.8-10.8) K/uL RBC 3.76 L (4.2-5.4) M/uL Hgb 10.8 L (12.0-16.0) g/dL Hct 34.6 L (37-47) % MCV 92.0 (80-100) fL MCH 28.7 (25-34) pg MCHC 31.2 L (32-36) g/dL RDW Std Deviation 49.7 H (36.4-46.3) fL RDW Coeff of Shreya 14.7 H (11.5-14.5) % Plt Count 320 (130-400) K/uL MPV 10.4 (7.4-10.4) fL PT 10.0 (9.0-12.0) Seconds INR 1.0 (0.9-1.1) APTT 26.2 (21.0-31.0) Seconds PTT Ratio 1.0 Sodium 143 (136-145) mmol/L Potassium 4.1 (3.5-5.1) mmol/L Chloride 110 H (98-107) mmol/L Carbon Dioxide 27 (21-32) mmol/L Anion Gap 6.0 (3-11) BUN 8 (7-18) mg/dl Creatinine 0.74 (0.6-1.2) mg/dl Est Cr Clr Drug Dosing 86.9 ml/min Est GFR ( Amer) 103.5 ml/min Est GFR (Non-Af Amer) 89.3 ml/min BUN/Creatinine Ratio 10.4 (10-20) Glucose 92 (70-99) mg/dl Calcium 8.6 (8.5-10.1) mg/dl Procalcitonin (0-0.5) ng/ml Urine Color Urine Appearance (Clear) Urine pH (4.5-7.5) Ur Specific [place] (1.000-1.030) Urine Protein (Negative) Urine Glucose (UA) (Negative) Urine Ketones (Negative) Urine Blood (Negative) Urine Nitrite (Negative) Urine Bilirubin (Negative) Urine Urobilinogen (Negative) Ur Leukocyte Esterase (Negative) Urine WBC (Auto) (0-5) /hpf Urine RBC (Auto) (0-4) /hpf U Hyaline Cast (Auto) (0-5) /lpf U Epithel Cells (Auto) (0-5) /lpf Urine Bacteria (Auto) (Negative) 10/23/21 10/23/21 Range/Units 11:48 11:39 WBC (4.8-10.8) K/uL RBC (4.2-5.4) M/uL Hgb (12.0-16.0) g/dL Hct (37-47) % MCV (80-100) fL MCH (25-34) pg MCHC (32-36) g/dL RDW Std Deviation (36.4-46.3) fL RDW Coeff of Shreya (11.5-14.5) % Plt Count (130-400) K/uL MPV (7.4-10.4) fL PT (9.0-12.0) Seconds INR (0.9-1.1) APTT (21.0-31.0) Seconds PTT Ratio Sodium (136-145) mmol/L Potassium (3.5-5.1) mmol/L Chloride (98-107) mmol/L Carbon Dioxide (21-32) mmol/L Anion Gap (3-11) BUN (7-18) mg/dl Creatinine (0.6-1.2) mg/dl Est Cr Clr Drug Dosing ml/min Est GFR ( Amer) ml/min Est GFR (Non-Af Amer) ml/min BUN/Creatinine Ratio (10-20) Glucose (70-99) mg/dl Calcium (8.5-10.1) mg/dl Procalcitonin < 0.05 (0-0.5) ng/ml Urine Color Yellow Urine Appearance Clear (Clear) Urine pH >= 9.0 H (4.5-7.5) Ur Specific [place] 1.019 (1.000-1.030) Urine Protein Negative (Negative) Urine Glucose (UA) Negative (Negative) Urine Ketones Negative (Negative) Urine Blood Negative (Negative) Urine Nitrite Negative (Negative) Urine Bilirubin Negative (Negative) Urine Urobilinogen Negative (Negative) Ur Leukocyte Esterase Trace H (Negative) Urine WBC (Auto) 1-5 (0-5) /hpf Urine RBC (Auto) 0-4 (0-4) /hpf U Hyaline Cast (Auto) 1-5 (0-5) /lpf U Epithel Cells (Auto) >30 H (0-5) /lpf Urine Bacteria (Auto) Negative (Negative) Diagnostic Findings CT pelvis w/IV con only CLINICAL HISTORY: Gluteal cleft breakdown, h/o MS in wheelchair . Patient reports infected, painful sores on her buttocks. COMPARISON: None CT DOSE: 587.41 mGy.cm TECHNIQUE: Standard CT of the Pelvis with intravenous contrast was performed. This CT exam was performed using one or more of the following dose reduction techniques: Automated exposure control, adjustment of the mA and/or kV according to patient size, or use of iterative reconstruction technique. CONTRAST: Optiray 320, 93 mL of nonionic intravenous contrast. The patient did not receive oral contrast. FINDINGS: Soft tissues: There is a soft tissue ulceration present at the upper aspect of the patient's buttocks cleft with air present. This extends to the deep fascial plane with the adjacent coccyx. However, no definite evidence for enhancing abscess is seen. Marked cellulitis is seen within the subcutaneous fat. No other definite ulcerations are identified.aaaaaaaaaaaaaaaaaaaaaaaaaaaaaaa. Osseous structures:There is no definite CT evidence for osteomyelitis of the adjacent coccyx. There are prominent degenerative changes present involving the lower lumbar spine. Bowel: The bowel gas pattern is within normal limits without evidence for dilatation or obstruction.. Bladder: There is no focal bladder wall abnormality, calculus or diverticulum. : There is no evidence for pelvic mass or adenopathy. There is evidence for previous hysterectomy. IMPRESSION: 1. CT confirms the presence of a ulceration at the upper aspect of the buttocks cleft with no associated abscess. 2. There is surrounding cellulitis. 3. There is no definite CT evidence for adjacent osteomyelitis of the coccyx. (1) Gluteal cleft wound Encounter type: initial encounter Laterality: unspecified laterality Qual ified Code(s): S31.809A - Unspecified open wound of unspecified buttock, initial encounter
[2021-10-24] MEDS: ACETAMINOPHEN 325 MG TAB PO PRN (14:44)
--- NOTE | 2021-10-24 15:16 | Hospitalist Progress Note ---
Date of Service October 24, 2021 Assessment & Plan (1) Gluteal cleft wound: Plan: -Presented from home with reports of worsening gluteal cleft wound x2 weeks. -Patient is hemodynamically stable and does not appear septic. -CT pelvis negative for abscess and osteomyelitis -S/p Zosyn and daptomycin in the ED, continue with -Wound culture pending. Blood cultures no growth to date. -General surgery consult for possible debridement -Wound care consult -ID consult (2) Multiple sclerosis: Plan: -Follows with [facility] neurology -Continue home meds (3) Hypothyroidism (acquired): Plan: -Continue levothyroxine (4) Depression: Plan: -Continue home meds (5) DVT prophylaxis: Plan: -SQ Lovenox Admission and Anticipated Discharge Date Admission Date: October 23, 2021 Supervising Physician Co-Signing Physician Notes Attending addendum The patient was seen and examined in emergency room in the holding area She denies any complaints No fever and no chills, no significant pain in the sacral area On examination Lying in bed comfortably Remains hemodynamically stable Chest-clear to auscultate bilaterally Heart-S1-S2, regular Abdomen-benign Extremities-trace edema bilaterally Her labs are reviewed She has gluteal cleft wound with ulceration and necrosis Wound care and surgery have been consulted Has been on intravenous antibiotic and ID has been consulted Agree with assessment and plan as outlined above by Debbie Wood Subjective Patient seen and examined. Follow-up for large gluteal cleft wound. Offers no complaints, denies pain. No chest pain or shortness of breath. Denies abdominal pain or nausea. Remains afebrile. Review of Systems Review of Systems: ROS per HPI, all other systems reviewed and negative Physical Exam Constitutional: WD/WN, vitals as above no acute distress Respiratory: normal respiratory effort, lungs clear to auscultation Cardiovascular: Rate/Rhythm: regular rate and regular rhythm Gastrointestinal (Abdomen): Percussion/Palpation: abdomen soft; abdomen nontender Musculoskeletal: Chronic lower extremity weakness with foot drop due to underlying MS Skin: no rashes, warm and dry Large gluteal cleft wound Neurologic: no focal motor deficits Psychiatric: A+Ox3, euthymic affect Results & Data Results & Data ([facility]) Vital Signs (Past 12 Hours) Vital Signs Temp Pulse Resp BP BP Pulse Ox 10/24/21 14:46 36.7 C 78 18 104/54 L 96 10/24/21 08:41 76 19 168/93 H 95 10/24/21 06:24 76 18 161/89 H 95 Laboratory Results Short CBC 10/24/21 Range/Units 05:16 WBC 4.43 L (4.8-10.8) K/uL Hgb 10.8 L (12.0-16.0) g/dL Hct 34.6 L (37-47) % Plt Count 320 (130-400) K/uL BMP 10/24/21 05:22 Sodium 143 Potassium 4.1 Chloride 110 H Carbon Dioxide 27 BUN 8 Creatinine 0.74 Glucose 92 Calcium 8.6 (1) Gluteal cleft wound Encounter type: initial encounter Laterality: unspecified laterality Qualified Code(s): S31.809A - Unspecified open wound of unspecified buttock, initial encounter
[2021-10-24] MEDS: ENOXAPARIN INJ 40 MG/0.4 ML SYR SQ SCH (21:41)
[2021-10-25] MEDS: PIPERACILLIN/TAZOBACTAM 3.375 GM in DEXTROSE 5% 100 ML IV SCH ×3 (01:37→15:47)
[2021-10-25] MEDS: LEVOTHYROXINE SODIUM 100 MCG TABLET PO SCH (05:57)
[2021-10-25 06:59] LABS: Creatinine Clr Calc Pharmacy 72.2 ml/min; Est GFR (African American) 82.8 ml/min; Est GFR (Non-African American) 71.4 ml/min
[2021-10-25] MEDS: GABAPENTIN 800 MG TAB PO SCH ×3 (07:36→20:54)
[2021-10-25] MEDS: OXYBUTYNIN CHLORIDE 5 MG TAB PO SCH ×4 (07:37→20:54)
[2021-10-25] MEDS: SERTRALINE HCL 100 MG TABLET PO SCH (07:37)
[2021-10-25] MEDS: tiZANidine HCL 4 MG TABLET PO SCH ×4 (07:37→20:54)
[2021-10-25] MEDS: hydroCHLOROthiazide 25 MG TAB PO SCH (07:37)
[2021-10-25] MEDS: ACETAMINOPHEN 325 MG TAB PO PRN (07:40)
[2021-10-25] MEDS: DAPTOmycin 250 MG in SYRINGE 0 ML IV SCH (09:49)
--- NOTE | 2021-10-25 15:18 | Surgery Progress Note ---
Date of Service October 25, 2021 Assessment & Plan (1) Gluteal cleft wound: (2) Cellulitis of multiple sites of buttock: Plan: Large gluteal cleft wound present No associated abscess but cellulitis is present Plan: Wound care nurse consulted, recommend irrigation with saline and aquacel ag Agree with wound care nurse recommendations. will hold off on debridement at this time continue antibiotics call with any questions/concerns. Dr. Will seen patient and recommended plan as above. Admission and Anticipated Discharge Date Admission Date: October 23, 2021 Subjective patient with no complaints today reviewed wound care nurse recommendations: irrigate wound with saline and apply two sheets of aquacel ag and change daily and prn. Physical Exam Constitutional: WD/WN, vitals as above no acute distress and not ill appearing Gastrointestinal (Abdomen): wound not inspected today as wound care nurse already evaluated patient and agree with their recommendations. Psychiatric: Orientation: alert and oriented x 3 Results & Data ([facility]) Vital Signs (Past 12 Hours) Vital Signs Temp Pulse Resp BP BP Pulse Ox 10/25/21 07:15 37.0 C 75 16 169/88 H 176/88 H 93 Laboratory Results 10/25/21 Range/Units 05:51 Creatinine 0.89 (0.6-1.2) mg/dl Est Cr Clr Drug Dosing 72.2 ml/min Est GFR ( Amer) 82.8 ml/min Est GFR (Non-Af Amer) 71.4 ml/min Microbiology 10/23/21 09:10 Gram Stain - Final Buttock Wound Culture - Final High counts mixed probable skin microbiota. No further identifications or sensitivities to follow. 10/23/21 09:40 Aerobic Blood Culture - Preliminary Blood No growth in Aerobic bottle after 48 hours. Anaerobic Blood Culture - Preliminary No growth in Anaerobic bottle after 48 hours. 10/23/21 09:29 Aerobic Blood Culture - Preliminary Blood No growth in Aerobic bottle after 48 hours. Anaerobic Blood Culture - Preliminary No growth in Anaerobic bottle after 48 hours. (1) Gluteal cleft wound Encounter type: initial encounter Laterality: unspecified laterality Qualified Code(s): S31.809A - Unspecified open wound of unspecified buttock, initial encounter
[2021-10-25] MEDS: traMADol HCL 50 MG TABLET PO PRN ×2 (15:52→20:58)
--- NOTE | 2021-10-25 15:52 | Hospitalist Progress Note ---
Date of Service October 25, 2021 Assessment & Plan (1) Gluteal cleft wound: Plan: -Presented from home with reports of worsening gluteal cleft wound x2 weeks. -Patient is hemodynamically stable and does not appear septic. -CT pelvis negative for abscess and osteomyelitis -S/p Zosyn and daptomycin in the ED, continue with (day 3) -Wound culture high counts mixed probable skin microbiota. Blood cultures no growth to date. -General surgery consult -no plans for debridement at this time -Wound care consult -ID consult pending (2) Multiple sclerosis: Plan: -Follows with [facility] neurology -Continue home meds (3) Hypothyroidism (acquired): Plan: -Continue levothyroxine (4) Depression: Plan: -Continue home meds (5) DVT prophylaxis: Plan: -SQ Lovenox Admission and Anticipated Discharge Date Admission Date: October 23, 2021 Supervising Physician Co-Signing Physician Notes Attending addendum The patient was seen and examined in medical floor in presence of the She complains to have some pain but no fever and/or chills Denies any chest pain, shortness of breath or palpitation, no abdominal pain nausea or vomiting On examination Lying in bed comfortably Hemodynamically stable and is afebrile Chest-clear to auscultate bilaterally Heart-S1-S2 regular Abdomen-benign Examination of the wound as in picture taken by the wound care nurse Her labs and imaging studies reviewed Severe sacral and edosn cleft wound/decubitus ulcer Appreciate surgery input and appreciate wound care input Awaiting ID input Agree with assessment and plan as outlined above by Debbie Wood Subjective Patient seen and examined. Follow-up for large gluteal cleft wound. Reports increased pain from wound today. Remains afebrile. No chest pain or shortness of breath. Denies abdominal pain or nausea. Review of Systems Review of Systems: ROS per HPI, all other systems reviewed and negative Physical Exam Constitutional: WD/WN, vitals as above Respiratory: normal respiratory effort, lungs clear to auscultation Cardiovascular: Rate/Rhythm: regular rate and regular rhythm Vessels: normal peripheral pulses Extremities: no edema Gastrointestinal (Abdomen): Percussion/Palpation: abdomen soft; abdomen nontender Musculoskeletal: Chronic lower extremity weakness Skin: Large gluteal cleft wound Neurologic: no focal motor deficits Psychiatric: A+Ox3, euthymic affect Results & Data Results & Data ([place]) Vital Signs (Past 12 Hours) Vital Signs Temp Pulse Resp BP BP Pulse Ox 10/25/21 07:15 37.0 C 75 16 169/88 H 176/88 H 93 (1) Gluteal cleft wound Encounter type: initial encounter Laterality: unspecified laterality Qualified Code(s): S31.809A - Unspecified open wound of unspecified buttock, initial encounter
[2021-10-25] MEDS: ENOXAPARIN INJ 40 MG/0.4 ML SYR SQ SCH (20:54)
[2021-10-26] MEDS: PIPERACILLIN/TAZOBACTAM 3.375 GM in DEXTROSE 5% 100 ML IV SCH ×3 (00:26→16:08)
[2021-10-26] MEDS: LEVOTHYROXINE SODIUM 100 MCG TABLET PO SCH (05:58)
[2021-10-26 07:11] LABS: Creatinine Clr Calc Pharmacy 75.6 ml/min; Est GFR (African American) 87.5 ml/min; Est GFR (Non-African American) 75.5 ml/min
[2021-10-26] MEDS: hydroCHLOROthiazide 25 MG TAB PO SCH (09:36)
[2021-10-26] MEDS: GABAPENTIN 800 MG TAB PO SCH ×3 (09:36→20:36)
[2021-10-26] MEDS: DAPTOmycin 250 MG in SYRINGE 0 ML IV SCH (09:36)
[2021-10-26] MEDS: OXYBUTYNIN CHLORIDE 5 MG TAB PO SCH ×4 (09:37→20:36)
[2021-10-26] MEDS: GLATIRAMER SC SCH (09:40)
[2021-10-26] MEDS: tiZANidine HCL 4 MG TABLET PO SCH ×4 (09:41→20:36)
[2021-10-26] MEDS: traMADol HCL 50 MG TABLET PO PRN ×2 (09:41→16:10)
[2021-10-26] MEDS: SERTRALINE HCL 100 MG TABLET PO SCH (09:41)
--- NOTE | 2021-10-26 19:40 | Hospitalist Progress Note ---
Date of Service October 26, 2021 Assessment & Plan (1) Gluteal cleft wound: Plan: Patient presented from home with reports of worsening gluteal cleft wound x2 weeks. Doesn't appear septic. -CT pelvis negative for abscess and osteomyelitis -Blood cultures negative to date Wound culture mixed skin martin Continue daptomycin, Zosyn ID consult pending Continue wound care Appreciate surgery input (2) Multiple sclerosis: Plan: -Follows with [facility] neurology -Continue home meds (3) Hypothyroidism (acquired): Plan: -Continue levothyroxine (4) Depression: Plan: -Continue home meds (5) DVT prophylaxis: Plan: -SQ Lovenox Admission and Anticipated Discharge Date Admission Date: October 23, 2021 Subjective Patient is seen and examined at bedside States having chronic leg pain secondary to MS Denies any chest pain, shortness of breath, dizziness, nausea, abdominal pain Offers no other complaints Review of Systems Review of Systems: All systems reviewed & are unremarkable except as noted in Subjective Physical Exam Physical Exam: Physical Exam: Vitals signs as noted above General Appearance:Moderately built and nourished, no apparent distress Head: normocephalic, Atraumatic Eyes: normal inspection, EOMI Neck: supple, Trachea midline Respiratory/Chest: Normal breath sounds, CTA, No accessory muscle use Cardiovascular: S1, S2, No murmur Abdomen/GI:Soft, Non tender, Bowel sounds present Back: +Large gluteal wound Extremities/Musculoskeletal:normal inspection, B/L LE edema Neurologic/Psych:AAOX3, grossly no focal neurological deficits Skin: normal color, warm Results & Data Results & Data ([facility]) Vital Signs (Past 12 Hours) Vital Signs BP 10/26/21 15:00 109/69 Laboratory Results BMP 10/26/21 05:56 Creatinine 0.85 (1) Gluteal cleft wound Encounter type: initial encounter Laterality: unspecified laterality Qualified Code(s): S31.809A - Unspecified open wound of unspecified buttock, initial encounter
[2021-10-26] MEDS: ENOXAPARIN INJ 40 MG/0.4 ML SYR SQ SCH (20:37)
[2021-10-27] MEDS: PIPERACILLIN/TAZOBACTAM 3.375 GM in DEXTROSE 5% 100 ML IV SCH ×2 (00:13→07:43)
[2021-10-27] MEDS: LEVOTHYROXINE SODIUM 100 MCG TABLET PO SCH (05:58)
[2021-10-27 06:21] LABS: Hematocrit (blood only) 38.3 % (37-47); Hemoglobin 11.9 g/dL (12.0-16.0); Mean Corpuscular Hemoglobin 28.9 pg (25-34); Mean Corpuscular Hgb Conc 31.1 g/dL (32-36); Mean Platelet Volume 10.1 fL (7.4-10.4); Platelet Count 370 K/uL (130-400); RDW Coefficient of Variation 14.8 % (11.5-14.5); RDW Standard Deviation 50.2 fL (36.4-46.3); Red Blood Count 4.12 M/uL (4.2-5.4); White Blood Count 4.04 K/uL (4.8-10.8)
[2021-10-27 06:57] LABS: BUN Creatinine Ratio 14.2 (10-20); Calcium 9.3 mg/dl (8.5-10.1); Creatinine Clr Calc Pharmacy 69.9 ml/min; Est GFR (African American) 79.6 ml/min; Est GFR (Non-African American) 68.6 ml/min; Potassium 3.6 mmol/L (3.5-5.1)
[2021-10-27] MEDS: traMADol HCL 50 MG TABLET PO PRN (07:43)
[2021-10-27] MEDS: SERTRALINE HCL 100 MG TABLET PO SCH (07:44)
[2021-10-27] MEDS: OXYBUTYNIN CHLORIDE 5 MG TAB PO SCH ×4 (07:44→20:48)
[2021-10-27] MEDS: hydroCHLOROthiazide 25 MG TAB PO SCH (07:44)
[2021-10-27] MEDS: GABAPENTIN 800 MG TAB PO SCH ×3 (07:44→20:48)
[2021-10-27] MEDS: tiZANidine HCL 4 MG TABLET PO SCH ×4 (07:44→20:48)
[2021-10-27] MEDS: DAPTOmycin 250 MG in SYRINGE 0 ML IV SCH (09:01)
[2021-10-27] MEDS: CEFEPIME 2,000 MG in SYRINGE 0 ML IV SCH (15:45)
--- NOTE | 2021-10-27 20:20 | Hospitalist Progress Note ---
Date of Service October 27, 2021 Assessment & Plan (1) Gluteal cleft wound: Plan: Patient presented from home with reports of worsening gluteal cleft wound x2 weeks. Doesn't appear septic. -CT pelvis negative for abscess and osteomyelitis -Blood cultures negative to date Wound culture mixed skin martin Continue daptomycin, Zosyn>> transition to cefepime and daptomycin Appreciate ID Input: : Suggested to continue cefepime, daptomycin for 2-week course or ciprofloxacin and linezolid Given patient on sertraline, tizanidine will continue IV antibiotics Continue wound care Appreciate surgery input (2) Multiple sclerosis: Plan: -Follows with [facility] neurology -Continue home meds (3) Hypothyroidism (acquired): Plan: -Continue levothyroxine (4) Depression: Plan: -Continue home meds (5) DVT prophylaxis: Plan: -SQ Lovenox Admission and Anticipated Discharge Date Admission Date: October 23, 2021 Subjective Patient is seen and examined at bedside No significant change from yesterday Discussed with ID today Denies any significant pain at gluteal wound Denies any chest pain, shortness of breath, dizziness, nausea, abdominal pain Review of Systems Review of Systems: All systems reviewed & are unremarkable except as noted in Subjective Physical Exam Physical Exam: Physical Exam: Vitals signs as noted above General Appearance:Moderately built and nourished, no apparent distress Head: normocephalic, Atraumatic Eyes: normal inspection, EOMI Neck: supple, Trachea midline Respiratory/Chest: Normal breath sounds, CTA, No accessory muscle use Cardiovascular: S1, S2, No murmur Abdomen/GI:Soft, Non tender, Bowel sounds present Back: +Large gluteal wound Extremities/Musculoskeletal:normal inspection, B/L LE edema Neurologic/Psych:AAOX3, grossly no focal neurological deficits Skin: normal color, warm Results & Data Results & Data ([facility]) Vital Signs (Past 12 Hours) Vital Signs Temp Pulse Resp BP Pulse Ox 10/27/21 15:30 37.1 C 75 20 122/75 94 Laboratory Results Short CBC 10/27/21 Range/Units 05:36 WBC 4.04 L (4.8-10.8) K/uL Hgb 11.9 L (12.0-16.0) g/dL Hct 38.3 (37-47) % Plt Count 370 (130-400) K/uL BMP 12/30/21 05:36 Sodium 135 L Potassium 3.6 Chloride 100 Carbon Dioxide 32 BUN 13 Creatinine 0.92 Glucose 98 Calcium 9.3 (1) Gluteal cleft wound Encounter type: initial encounter Laterality: unspecified laterality Qualified Code(s): S31.809A - Unspecified open wound of unspecified buttock, initial encounter
[2021-10-27] MEDS: ACETAMINOPHEN 325 MG TAB PO PRN (20:48)
[2021-10-27] MEDS: ENOXAPARIN INJ 40 MG/0.4 ML SYR SQ SCH (20:49)
[2021-10-28] MEDS: CEFEPIME 2,000 MG in SYRINGE 0 ML IV SCH ×2 (04:41→16:09)
[2021-10-28] MEDS: LEVOTHYROXINE SODIUM 100 MCG TABLET PO SCH (06:31)
[2021-10-28] MEDS: tiZANidine HCL 4 MG TABLET PO SCH ×4 (08:08→20:35)
[2021-10-28] MEDS: OXYBUTYNIN CHLORIDE 5 MG TAB PO SCH ×4 (08:09→20:35)
[2021-10-28] MEDS: GABAPENTIN 800 MG TAB PO SCH ×3 (08:09→20:35)
[2021-10-28] MEDS: hydroCHLOROthiazide 25 MG TAB PO SCH (08:09)
[2021-10-28] MEDS: SERTRALINE HCL 100 MG TABLET PO SCH (08:10)
[2021-10-28 08:14] LABS: Hematocrit (blood only) 38.8 % (37-47); Hemoglobin 12.3 g/dL (12.0-16.0); Mean Corpuscular Hemoglobin 28.8 pg (25-34); Mean Corpuscular Hgb Conc 31.7 g/dL (32-36); Mean Corpuscular Volume 90.9 fL (80-100); Mean Platelet Volume 10.1 fL (7.4-10.4); Platelet Count 360 K/uL (130-400); RDW Coefficient of Variation 14.5 % (11.5-14.5); RDW Standard Deviation 47.7 fL (36.4-46.3); Red Blood Count 4.27 M/uL (4.2-5.4); White Blood Count 4.24 K/uL (4.8-10.8)
[2021-10-28 08:31] LABS: BUN Creatinine Ratio 18.8 (10-20); Calcium 9.2 mg/dl (8.5-10.1); Creatinine Clr Calc Pharmacy 85.7 ml/min; Est GFR (African American) 101.8 ml/min; Est GFR (Non-African American) 87.9 ml/min; Potassium 3.5 mmol/L (3.5-5.1)
[2021-10-28] MEDS: GLATIRAMER SC SCH (09:04)
[2021-10-28] MEDS: DAPTOmycin 250 MG in SYRINGE 0 ML IV SCH (09:04)
--- NOTE | 2021-10-28 18:40 | Hospitalist Progress Note ---
Date of Service October 28, 2021 Assessment & Plan (1) Gluteal cleft wound: Plan: Patient presented from home with reports of worsening gluteal cleft wound x2 weeks. Doesn't appear septic. -CT pelvis negative for abscess and osteomyelitis -Blood cultures negative to date Wound culture mixed skin martin Continue daptomycin, Zosyn>> transition to cefepime and daptomycin Appreciate ID Input: : Suggested to continue cefepime, daptomycin for 2-week course or ciprofloxacin and linezolid Given patient on sertraline, tizanidine, will continue IV antibiotics Continue wound care Appreciate surgery input May need rehab placement (2) Multiple sclerosis: Plan: -Follows with [facility] neurology -Continue home meds (3) Hypothyroidism (acquired): Plan: -Continue levothyroxine (4) Depression: Plan: -Continue home meds (5) DVT prophylaxis: Plan: -SQ Lovenox Admission and Anticipated Discharge Date Admission Date: October 23, 2021 Subjective Patient is seen and examined at bedside Doing well today Had dressing change Denies any chest pain, shortness of breath, dizziness, nausea, abdominal pain Review of Systems Review of Systems: All systems reviewed & are unremarkable except as noted in Subjective Physical Exam Physical Exam: Physical Exam: Vitals signs as noted above General Appearance:Moderately built and nourished, no apparent distress Head: normocephalic, Atraumatic Eyes: normal inspection, EOMI Neck: supple, Trachea midline Respiratory/Chest: Normal breath sounds, CTA, No accessory muscle use Cardiovascular: S1, S2, No murmur Abdomen/GI:Soft, Non tender, Bowel sounds present Back: +Large gluteal wound Extremities/Musculoskeletal:normal inspection, B/L LE edema Neurologic/Psych:AAOX3, grossly no focal neurological deficits Skin: normal color, warm Results & Data Results & Data ([facility]) Vital Signs (Past 12 Hours) Vital Signs Temp Pulse Resp BP Pulse Ox 10/28/21 15:29 36.7 C 77 20 117/72 93 10/28/21 07:09 37.2 C 77 20 135/87 96 Laboratory Results Short CBC 10/28/21 Range/Units 07:31 WBC 4.24 L (4.8-10.8) K/uL Hgb 12.3 (12.0-16.0) g/dL Hct 38.8 (37-47) % Plt Count 360 (130-400) K/uL BMP 10/28/21 07:31 Sodium 137 Potassium 3.5 Chloride 102 Carbon Dioxide 28 BUN 14 Creatinine 0.75 Glucose 101 H Calcium 9.2 (1) Gluteal cleft wound Encounter type: initial encounter Laterality: unspecified laterality Qualified Code(s): S31.809A - Unspecified open wound of unspecified buttock, initial encounter
[2021-10-28] MEDS: ACETAMINOPHEN 325 MG TAB PO PRN (20:35)
[2021-10-28] MEDS: ENOXAPARIN INJ 40 MG/0.4 ML SYR SQ SCH (20:35)
[2021-10-29] MEDS: CEFEPIME 2,000 MG in SYRINGE 0 ML IV SCH ×2 (04:36→17:21)
[2021-10-29] MEDS: LEVOTHYROXINE SODIUM 100 MCG TABLET PO SCH (05:09)
[2021-10-29 06:28] LABS: Creatinine Clr Calc Pharmacy 78.4 ml/min; Est GFR (African American) 91.4 ml/min; Est GFR (Non-African American) 78.9 ml/min
[2021-10-29] MEDS: OXYBUTYNIN CHLORIDE 5 MG TAB PO SCH ×4 (09:39→20:27)
[2021-10-29] MEDS: tiZANidine HCL 4 MG TABLET PO SCH ×4 (09:39→20:27)
[2021-10-29] MEDS: hydroCHLOROthiazide 25 MG TAB PO SCH (09:39)
[2021-10-29] MEDS: SERTRALINE HCL 100 MG TABLET PO SCH (09:39)
[2021-10-29] MEDS: GABAPENTIN 800 MG TAB PO SCH ×3 (09:39→20:27)
[2021-10-29] MEDS: DAPTOmycin 250 MG in SYRINGE 0 ML IV SCH (09:40)
[2021-10-29] MEDS: LACTOBACILLUS ACIDOPHILUS 1 GM PACK PO SCH ×2 (12:36→17:22)
--- NOTE | 2021-10-29 19:20 | Hospitalist Progress Note ---
Date of Service October 29, 2021 Assessment & Plan (1) Gluteal cleft wound: Plan: Patient presented from home with reports of worsening gluteal cleft wound x2 weeks. Doesn't appear septic. -CT pelvis negative for abscess and osteomyelitis -Blood cultures negative to date Wound culture mixed skin martin Continue daptomycin, Zosyn>> transition to cefepime and daptomycin Appreciate ID Input: : Suggested to continue cefepime, daptomycin for 2-week course or ciprofloxacin and linezolid Given patient on sertraline, tizanidine, will continue IV antibiotics Continue wound care Appreciate surgery input May need rehab placement Abdominal discomfort, diarrhea Likely secondary to antibiotics Check stool for C. difficile Start on probiotic (2) Multiple sclerosis: Plan: -Follows with [facility] neurology -Continue home meds (3) Hypothyroidism (acquired): Plan: -Continue levothyroxine (4) Depression: Plan: -Continue home meds (5) DVT prophylaxis: Plan: -SQ Lovenox Admission and Anticipated Discharge Date Admission Date: October 23, 2021 Subjective Patient is seen and examined at bedside States having abdominal discomfort and diarrhea today Otherwise feels well Denies any chest pain, shortness of breath, dizziness, nausea, abdominal pain Review of Systems Review of Systems: All systems reviewed & are unremarkable except as noted in Subjective Physical Exam Physical Exam: Physical Exam: Vitals signs as noted above General Appearance:Moderately built and nourished, no apparent distress Head: normocephalic, Atraumatic Eyes: normal inspection, EOMI Neck: supple, Trachea midline Respiratory/Chest: Normal breath sounds, CTA, No accessory muscle use Cardiovascular: S1, S2, No murmur Abdomen/GI:Soft, Non tender, Bowel sounds present Back: +Large gluteal wound Extremities/Musculoskeletal:normal inspection, B/L LE edema Neurologic/Psych:AAOX3, grossly no focal neurological deficits Skin: normal color, warm Results & Data Results & Data ([facility]) Vital Signs (Past 12 Hours) Vital Signs Temp Pulse Resp BP Pulse Ox 10/29/21 16:19 36.9 C 75 16 128/70 95 10/29/21 07:26 37.3 C 74 16 178/81 H 96 Laboratory Results BMP 10/29/21 05:24 Creatinine 0.82 (1) Gluteal cleft wound Encounter type: initial encounter Laterality: unspecified laterality Qualified Code(s): S31.809A - Unspecified open wound of unspecified buttock, initial encounter
[2021-10-29] MEDS: ACETAMINOPHEN 325 MG TAB PO PRN (20:27)
[2021-10-29] MEDS: ENOXAPARIN INJ 40 MG/0.4 ML SYR SQ SCH (20:28)
[2021-10-30] MEDS: CEFEPIME 2,000 MG in SYRINGE 0 ML IV SCH ×2 (03:42→17:21)
[2021-10-30 05:56] LABS: Hematocrit (blood only) 38.9 % (37-47); Hemoglobin 12.2 g/dL (12.0-16.0); Mean Corpuscular Hemoglobin 28.7 pg (25-34); Mean Corpuscular Hgb Conc 31.4 g/dL (32-36); Mean Corpuscular Volume 91.5 fL (80-100); Mean Platelet Volume 9.9 fL (7.4-10.4); Platelet Count 373 K/uL (130-400); RDW Coefficient of Variation 14.7 % (11.5-14.5); RDW Standard Deviation 49.4 fL (36.4-46.3); Red Blood Count 4.25 M/uL (4.2-5.4); White Blood Count 4.78 K/uL (4.8-10.8)
[2021-10-30] MEDS: LEVOTHYROXINE SODIUM 100 MCG TABLET PO SCH (06:03)
[2021-10-30 06:25] LABS: Calcium 9.4 mg/dl (8.5-10.1); Creatinine Clr Calc Pharmacy 79.4 ml/min; Est GFR (African American) 92.8 ml/min; Est GFR (Non-African American) 80.1 ml/min; Potassium 3.6 mmol/L (3.5-5.1)
[2021-10-30] MEDS: ACETAMINOPHEN 325 MG TAB PO PRN ×2 (08:17→17:21)
[2021-10-30] MEDS: LACTOBACILLUS ACIDOPHILUS 1 GM PACK PO SCH ×3 (08:18→17:22)
[2021-10-30] MEDS: tiZANidine HCL 4 MG TABLET PO SCH ×4 (08:19→20:32)
[2021-10-30] MEDS: GABAPENTIN 800 MG TAB PO SCH ×3 (08:19→20:32)
[2021-10-30] MEDS: hydroCHLOROthiazide 25 MG TAB PO SCH (08:19)
[2021-10-30] MEDS: OXYBUTYNIN CHLORIDE 5 MG TAB PO SCH ×4 (08:19→20:32)
[2021-10-30] MEDS: SERTRALINE HCL 100 MG TABLET PO SCH (08:20)
[2021-10-30] MEDS: amLODIPine BESYLATE 5 MG TAB PO SCH (11:00)
[2021-10-30] MEDS: DAPTOmycin 250 MG in SYRINGE 0 ML IV SCH (11:00)
--- NOTE | 2021-10-30 20:16 | Hospitalist Progress Note ---
Date of Service October 30, 2021 Assessment & Plan (1) Gluteal cleft wound: Plan: Patient presented from home with reports of worsening gluteal cleft wound x2 weeks. Doesn't appear septic. -CT pelvis negative for abscess and osteomyelitis -Blood cultures negative to date Wound culture mixed skin martin Continue daptomycin, Zosyn>> transition to cefepime and daptomycin Appreciate ID Input: : Suggested to continue cefepime, daptomycin for 2-week course or ciprofloxacin and linezolid Given patient on sertraline, tizanidine, will continue IV antibiotics Continue wound care Appreciate surgery input Case management to help with discharge planning Abdominal discomfort, diarrhea Likely secondary to antibiotics Check stool for C. difficile if recurrence of diarrhea Continue probiotic (2) Multiple sclerosis: Plan: -Follows with [facility] neurology -Continue home meds (3) Hypothyroidism (acquired): Plan: -Continue levothyroxine (4) Depression: Plan: -Continue home meds (5) DVT prophylaxis: Plan: -SQ Lovenox Admission and Anticipated Discharge Date Admission Date: October 23, 2021 Subjective Patient is seen and examined at bedside Diarrhea improved as per patient Updated patient's family over the phone Patient offers no new complaints Waiting for placement Denies any chest pain, shortness of breath, dizziness, nausea, abdominal pain Review of Systems Review of Systems: All systems reviewed & are unremarkable except as noted in Subjective Physical Exam Physical Exam: Physical Exam: Vitals signs as noted above General Appearance:Moderately built and nourished, no apparent distress Head: normocephalic, Atraumatic Eyes: normal inspection, EOMI Neck: supple, Trachea midline Respiratory/Chest: Normal breath sounds, CTA, No accessory muscle use Cardiovascular: S1, S2, No murmur Abdomen/GI:Soft, Non tender, Bowel sounds present Back: +Large gluteal wound Extremities/Musculoskeletal:normal inspection, B/L LE edema Neurologic/Psych:AAOX3, grossly no focal neurological deficits Skin: normal color, warm Results & Data Results & Data ([facility]) Vital Signs (Past 12 Hours) Vital Signs Temp Pulse Resp BP Pulse Ox 10/30/21 16:45 37.2 C 78 14 102/64 93 Laboratory Results Short CBC 10/30/21 Range/Units 05:39 WBC 4.78 L (4.8-10.8) K/uL Hgb 12.2 (12.0-16.0) g/dL Hct 38.9 (37-47) % Plt Count 373 (130-400) K/uL BMP 10/30/21 05:39 Sodium 137 Potassium 3.6 Chloride 101 Carbon Dioxide 31 BUN 21 H Creatinine 0.81 Glucose 104 H Calcium 9.4 (1) Gluteal cleft wound Encounter type: initial encounter Laterality: unspecified laterality Qualified Code(s): S31.809A - Unspecified open wound of unspecified buttock, initial encounter
[2021-10-30] MEDS: ENOXAPARIN INJ 40 MG/0.4 ML SYR SQ SCH (20:31)
[2021-10-31] MEDS: LEVOTHYROXINE SODIUM 100 MCG TABLET PO SCH (04:50)
[2021-10-31] MEDS: CEFEPIME 2,000 MG in SYRINGE 0 ML IV SCH ×2 (04:50→16:24)
[2021-10-31] MEDS: ACETAMINOPHEN 325 MG TAB PO PRN (08:01)
[2021-10-31] MEDS: GABAPENTIN 800 MG TAB PO SCH ×3 (08:02→21:12)
[2021-10-31] MEDS: SERTRALINE HCL 100 MG TABLET PO SCH (08:02)
[2021-10-31] MEDS: OXYBUTYNIN CHLORIDE 5 MG TAB PO SCH ×4 (08:02→21:12)
[2021-10-31] MEDS: tiZANidine HCL 4 MG TABLET PO SCH ×4 (08:02→21:12)
[2021-10-31] MEDS: LACTOBACILLUS ACIDOPHILUS 1 GM PACK PO SCH ×3 (08:03→16:24)
[2021-10-31] MEDS: GLATIRAMER SC SCH (09:22)
[2021-10-31] MEDS: DAPTOmycin 250 MG in SYRINGE 0 ML IV SCH (09:23)
[2021-10-31] MEDS ORDERED: BACITRACIN OINT 15 GM TUBE ONE (11:54)
--- NOTE | 2021-10-31 13:17 | Surgery Progress Note ---
Date of Service October 31, 2021 Assessment & Plan (1) Gluteal cleft wound: Plan: pt is a 56 year-old female is requested for F/U gluteal cleft wound, IMP: chronic gluteal cleft wound, plan, I recommend to do debridement necrotic tissue on gluteal cleft wound at be dside, D/w benefits, risks and alternatives of the procedure, the risks - infection, bleeding, may need more procedure, pt understood, she agrees with the surgery, she signed informed consent, I answered all questions, prepped with betadine on wound, remove necrotic tissue with sharp scissor, wound culture sent, pt tolerated the procedure well, wound care nurse change dressing once a day, will F/U, Plan: Large gluteal cleft wound present No associated abscess but cellulitis is present Plan: Wound care nurse consulted, recommend irrigation with saline and aquacel ag Agree with wound care nurse recommendations. will hold off on debridement at this time continue antibiotics call with any questions/concerns. Dr. Will seen patient and recommended plan as above. Admission and Anticipated Discharge Date Admission Date: October 23, 2021 Supervising Physician Co-Signing Physician Notes Attending addendum The patient was seen and examined in medical floor in presence of the She complains to have some pain but no fever and/or chills Denies any chest pain, shortness of breath or palpitation, no abdominal pain nausea or vomiting On examination Lying in bed comfortably Hemodynamically stable and is afebrile Chest-clear to auscultate bilaterally Heart-S1-S2 regular Abdomen-benign Examination of the wound as in picture taken by the wound care nurse Her labs and imaging studies reviewed Severe sacral and cleft wound/decubitus ulcer Appreciate surgery input and appreciate wound care input Awaiting ID input Agree with assessment and plan as outlined above by Debbie Wood Subjective Patient is seen and examined at bedside Diarrhea improved as per patient Updated patient's family over the phone Patient offers no new complaints Waiting for placement Denies any chest pain, shortness of breath, dizziness, nausea, abdominal pain 10/31/2021 1:12PM Dr. Ospina F/U gluteal cleft wound, T 37.5, some drainage from the wound, and some necrotic tissue on wound, Physical Exam Constitutional: WD/WN, vitals as above Eyes: PERRL, conjunctivae normal, anicteric sclerae Neck: trachea midline, no thyromegaly Respiratory: normal respiratory effort, lungs clear to auscultation Cardiovascular: RRR, no murmur, no edema Gastrointestinal (Abdomen): normal bowel sounds, soft, nontender, no hepatosplenomegaly Skin: gluteal cleft wound, size 4x7cm, with necrotic tissue, some redness at wound edge, Neurologic: patellar DTR's 2+ bilat, sensation intact Psychiatric: A+Ox3, euthymic affect Results & Data ([facility]) Vital Signs (Past 12 Hours) Vital Signs Temp Pulse Resp BP Pulse Ox 10/31/21 07:46 37.5 C 89 16 142/[address] pelvis w/IV con only CLINICAL HISTORY: Gluteal cleft breakdown, h/o MS in wheelchair . Patient reports infected, painful sores on her buttocks. COMPARISON: None CT DOSE: 587.41 mGy.cm TECHNIQUE: Standard CT of the Pelvis with intravenous contrast was performed. This CT exam was performed using one or more of the following dose reduction techniques: Automated exposure control, adjustment of the mA and/or kV according to patient size, or use of iterative reconstruction technique. CONTRAST: Optiray 320, 93 mL of nonionic intravenous contrast. The patient did not receive oral contrast. FINDINGS: Soft tissues: There is a soft tissue ulceration present at the upper aspect of the patient's buttocks cleft with air present. This extends to the deep fascial plane with the adjacent coccyx. However, no definite evidence for enhancing abscess is seen. Marked cellulitis is seen within the subcutaneous fat. No other definite ulcerations are identified.aaaaaaaaaaaaaaaaaaaaaaaaaaaaaaa. Osseous structures:There is no definite CT evidence for osteomyelitis of the adjacent coccyx. There are prominent degenerative changes present involving the lower lumbar spine. Bowel: The bowel gas pattern is within normal limits without evidence for dilatation or obstruction.. Bladder: There is no focal bladder wall abnormality, calculus or diverticulum. : There is no evidence for pelvic mass or adenopathy. There is evidence for previous hysterectomy. IMPRESSION: 1. CT confirms the presence of a ulceration at the upper aspect of the buttocks cleft with no associated abscess. 2. There is surrounding cellulitis. 3. There is no definite CT evidence for adjacent osteomyelitis of the coccyx. (1) Gluteal cleft wound Encounter type: initial encounter Laterality: unspecified laterality Qualified Code(s): S31.809A - Unspecified open wound of unspecified buttock, initial encounter
--- NOTE | 2021-10-31 17:55 | Hospitalist Progress Note ---
Date of Service October 31, 2021 Assessment & Plan (1) Gluteal cleft wound: Plan: Patient presented from home with reports of worsening gluteal cleft wound x2 weeks. Doesn't appear septic. -CT pelvis negative for abscess and osteomyelitis -Blood cultures negative to date Wound culture mixed skin martin Complete wound culture pending Continue daptomycin, Zosyn>> transition to cefepime and daptomycin Appreciate ID Input: : Suggested to continue cefepime, daptomycin for 2-week course or ciprofloxacin and linezolid Given patient on sertraline, tizanidine, will continue IV antibiotics Continue wound care Appreciate surgery input Case management to help with discharge planning S/P debridement today Abdominal discomfort, diarrhea Likely secondary to antibiotics Check stool for C. difficile if recurrence of diarrhea Continue probiotic (2) Multiple sclerosis: Plan: -Follows with [facility] neurology -Continue home meds (3) Hypothyroidism (acquired): Plan: -Continue levothyroxine (4) Depression: Plan: -Continue home meds (5) DVT prophylaxis: Plan: -SQ Lovenox Admission and Anticipated Discharge Date Admission Date: October 23, 2021 Subjective Patient is seen and examined at bedside Diarrhea resolved as per patient Discussed with surgery today Patient had debridement earlier today Denies any chest pain, shortness of breath, dizziness, nausea, abdominal pain Review of Systems Review of Systems: All systems reviewed & are unremarkable except as noted in Subjective Physical Exam Physical Exam: Physical Exam: Vitals signs as noted above General Appearance:Moderately built and nourished, no apparent distress Head: normocephalic, Atraumatic Eyes: normal inspection, EOMI Neck: supple, Trachea midline Respiratory/Chest: Normal breath sounds, CTA, No accessory muscle use Cardiovascular: S1, S2, No murmur Abdomen/GI:Soft, Non tender, Bowel sounds present Back: +Large gluteal wound Extremities/Musculoskeletal:normal inspection, B/L LE edema Neurologic/Psych:AAOX3, grossly no focal neurological deficits Skin: normal color, warm Results & Data Results & Data ([facility]) Vital Signs (Past 12 Hours) Vital Signs Temp Pulse Resp BP Pulse Ox 10/31/21 15:29 36.8 C 88 16 138/84 94 10/31/21 07:46 37.5 C 89 16 142/77 H 92 Laboratory Results Cardiac Enzymes 10/31/21 Range/Units 07:07 Total Creatine Kinase 60 (26-192) U/L (1) Gluteal cleft wound Encounter type: initial encounter Laterality: unspecified laterality Qualified Code(s): S31.809A - Unspecified open wound of unspecified buttock, initial encounter
[2021-10-31] MEDS: ENOXAPARIN INJ 40 MG/0.4 ML SYR SQ SCH (21:11)
[2021-11-01] MEDS: ACETAMINOPHEN 325 MG TAB PO PRN ×4 (01:31→20:54)
[2021-11-01] MEDS: CEFEPIME 2,000 MG in SYRINGE 0 ML IV SCH ×2 (04:14→16:56)
[2021-11-01] MEDS: LEVOTHYROXINE SODIUM 100 MCG TABLET PO SCH (05:48)
[2021-11-01] MEDS: amLODIPine BESYLATE 5 MG TAB PO SCH (08:02)
[2021-11-01] MEDS: tiZANidine HCL 4 MG TABLET PO SCH ×4 (08:02→19:35)
[2021-11-01] MEDS: OXYBUTYNIN CHLORIDE 5 MG TAB PO SCH ×4 (08:02→19:36)
[2021-11-01] MEDS: GABAPENTIN 800 MG TAB PO SCH ×3 (08:02→19:34)
[2021-11-01] MEDS: LACTOBACILLUS ACIDOPHILUS 1 GM PACK PO SCH ×3 (08:02→16:56)
[2021-11-01] MEDS: hydroCHLOROthiazide 25 MG TAB PO SCH (08:03)
[2021-11-01] MEDS: SERTRALINE HCL 100 MG TABLET PO SCH (08:03)
--- NOTE | 2021-11-01 08:14 | Operative Report (OR) ---
PREOPERATIVE DIAGNOSIS: Gluteal wound. POSTOPERATIVE DIAGNOSIS: Gluteal wound. OPERATION: Debridement of gluteal wound. SURGEON: Apolinar Ospina MD ANESTHESIA: None. ESTIMATED BLOOD LOSS: About 1 mL. FINDINGS: Chronic gluteal wound deep to muscle layer with necrosis tissue, wound cultures sent. COMPLICATIONS: None. INDICATIONS FOR THE PROCEDURE: This is a 56-year-old female who is consulted for gluteal wound. Afte r I examined the patient, I recommend to do a debridement of gluteal wound. I did talk to the patien t about the benefits, risks, alternate procedures. I indicated the risks may include, but not limite d to, such as bleeding, infection, may need more procedure, the patient understands. She signed info rmed consent and I answered all questions. DETAILS OF PROCEDURE: We did this procedure at the patient's bedside. After we identified the patie nt and verified the procedure, risks and benefits at the bedside, then we turned the patient to the r ight side decubitus position. There was a chronic gluteal wound to size of about 4 x 7 cm and with n ecrosis tissue on the wound and some drainage. We sent a wound culture and also we applied Betadine on the wound and we used sharp scissors to remove necrosis tissue. Rechecked, no active bleeding. T hen, I applied bacitracin, covered with 4 x 4, covered with gauze. The patient tolerated the procedu re well and after procedure I did talk to the patient about the findings and the procedure we did, th e patient understood. I also gave the patient postop care instructions. Job ID: [id number]
[2021-11-01 10:00] LABS: Hemoglobin 12.4 g/dL (12.0-16.0); Mean Corpuscular Hemoglobin 28.9 pg (25-34); Mean Corpuscular Hgb Conc 31.8 g/dL (32-36); Mean Corpuscular Volume 90.9 fL (80-100); Mean Platelet Volume 10.2 fL (7.4-10.4); Platelet Count 314 K/uL (130-400); RDW Coefficient of Variation 14.8 % (11.5-14.5); RDW Standard Deviation 49.1 fL (36.4-46.3); Red Blood Count 4.29 M/uL (4.2-5.4); White Blood Count 5.06 K/uL (4.8-10.8)
[2021-11-01 10:21] LABS: BUN Creatinine Ratio 23.8 (10-20); Creatinine Clr Calc Pharmacy 82.4 ml/min; Est GFR (African American) 97.1 ml/min; Est GFR (Non-African American) 83.8 ml/min; Potassium 3.4 mmol/L (3.5-5.1)
[2021-11-01] MEDS: DAPTOmycin 250 MG in SYRINGE 0 ML IV SCH (10:43)
[2021-11-01] MEDS ORDERED: POTASSIUM CHLORIDE CRTAB 20 MEQ TABCR PO STA (12:57)
--- NOTE | 2021-11-01 13:28 | Surgery Progress Note ---
Date of Service November 01, 2021 Assessment & Plan (1) Gluteal cleft wound: Plan: pt is a 56 year-old female is requested for F/U gluteal cleft wound, IMP: chronic gluteal cleft wound, plan, I recommend to do debridement necrotic tissue on gluteal cleft wound at be dside, D/w benefits, risks and alternatives of the procedure, the risks - infection, bleeding, may need more procedure, pt understood, she agrees with the surgery, she signed informed consent, I answered all questions, prepped with betadine on wound, remove necrotic tissue with sharp scissor, wound culture sent, pt tolerated the procedure well, wound care nurse change dressing once a day, will F/U, 11/01/2021 1:34PM Dr. Ospina F/U S/P debridement on gluteal wound, pt is doing better, no fever, normal WBC wound culture- Deep Wound Culture Preliminary 11/01/21 Organism 1 Viet albicans/dubliniensis treat vite infection per- hospitalist, dressing change by wound care nurse once a day, sign off today, please call with questions, Thanks, Plan: Large gluteal cleft wound present No associated abscess but cellulitis is present Plan: Wound care nurse consulted, recommend irrigation with saline and aquacel ag Agree with wound care nurse recommendations. will hold off on debridement at this time continue antibiotics call with any questions/concerns. Dr. Will seen patient and recommended plan as above. Admission and Anticipated Discharge Date Admission Date: October 23, 2021 Supervising Physician Co-Signing Physician Notes Attending addendum The patient was seen and examined in medical floor in presence of the She complains to have some pain but no fever and/or chills Denies any chest pain, shortness of breath or palpitation, no abdominal pain nausea or vomiting On examination Lying in bed comfortably Hemodynamically stable and is afebrile Chest-clear to auscultate bilaterally Heart-S1-S2 regular Abdomen-benign Examination of the wound as in picture taken by the wound care nurse Her labs and imaging studies reviewed Severe sacral and cleft wound/decubitus ulcer Appreciate surgery input and appreciate wound care input Awaiting ID input Agree with assessment and plan as outlined above by Debbie Wood Subjective Patient is seen and examined at bedside Diarrhea resolved as per patient Discussed with surgery today Patient had debridement earlier today Denies any chest pain, shortness of breath, dizziness, nausea, abdominal pain 11/01/2021 1:29Pm Dr. Ospina pt feels better, no fever, no pain on lower back area, wound culture- candid albicans/dubliniensis. Deep Wound Culture Preliminary 11/01/21 Organism 1 Viet albicans/dubliniensis Physical Exam Constitutional: WD/WN, vitals as above Eyes: PERRL, conjunctivae normal, anicteric sclerae Neck: trachea midline, no thyromegaly Respiratory: normal respiratory effort, lungs clear to auscultation Cardiovascular: RRR, no murmur, no edema Gastrointestinal (Abdomen): normal bowel sounds, soft, nontender, no hepatosplenomegaly Skin: the wound is dry, no significant redness, Neurologic: patellar DTR's 2+ bilat, sensation intact Psychiatric: A+Ox3, euthymic affect Results & Data ([facility]) Vital Signs (Past 12 Hours) Vital Signs Temp Pulse Resp BP Pulse Ox 11/01/21 08:06 36.9 C 82 16 145/82 H 95 Laboratory Results Abnormal lab results 11/01/21 11/01/21 Range/Units 09:19 09:19 MCHC 31.8 L (32-36) g/dL RDW Std Deviation 49.1 H (36.4-46.3) fL RDW Coeff of Shreya 14.8 H (11.5-14.5) % Potassium 3.4 L (3.5-5.1) mmol/L BUN 19 H (7-18) mg/dl BUN/Creatinine Ratio 23.8 H (10-20) Glucose 118 H (70-99) mg/dl Diagnostic Findings Deep Wound Culture Preliminary 11/01/21 Organism 1 Viet albicans/dubliniensis (1) Gluteal cleft wound Encounter type: initial encounter Laterality: unspecified laterality Yohan lified Code(s): S31.809A - Unspecified open wound of unspecified buttock, initial encounter
[2021-11-01] MEDS: FLUCONAZOLE 100 MG TAB PO SCH (13:47)
--- NOTE | 2021-11-01 14:48 | Electrocardiogram Report ---
Test Reason : Blood Pressure : / mmHG Vent. Rate : 077 BPM Atrial Rate : 077 BPM P-R Int : 146 ms QRS Dur : 074 ms QT Int : 382 ms P-R-T Axes : 005 018 035 degrees QTc Int : 432 ms Normal sinus rhythm Abnormal ECG When compared with ECG of 23-OCT-2021 09:39, Non-specific change in ST segment in Lateral leads T wave inversion now evident in Lateral leads Confirmed by Edmond Goldman ([id number]) on 11/01/2021 2:47:57 PM Referred By: REFERRED SELF Confirmed By:Edmond Goldman
--- NOTE | 2021-11-01 15:13 | Hospitalist Progress Note ---
Date of Service November 01, 2021 Assessment & Plan (1) Gluteal cleft wound: Plan: Patient presented from home with reports of worsening gluteal cleft wound x2 weeks. Doesn't appear septic. -CT pelvis negative for abscess and osteomyelitis -Blood cultures negative to date Wound culture mixed skin martin Deep wound culture growing Rosa Continue daptomycin, Zosyn>> transition to cefepime and daptomycin Appreciate ID: : Suggested to continue cefepime, daptomycin for 2-week course or ciprofloxacin and linezolid Given patient on sertraline, tizanidine, will continue IV antibiotics Continue wound care Appreciate surgery input Case management to help with discharge planning S/P debridement on 10/31/20 Discussed with ID : Discussed about wound culture growing Rosa, suggested to start on fluconazole Monitor QTC while on fluconazole Abdominal discomfort, diarrhea Likely secondary to antibiotics Check stool for C. difficile if recurrence of diarrhea Continue probiotic (2) Multiple sclerosis: Plan: -Follows with [facility] neurology -Continue home meds (3) Hypothyroidism (acquired): Plan: -Continue levothyroxine (4) Depression: Plan: -Continue home meds (5) DVT prophylaxis: Plan: -SQ Lovenox Admission and Anticipated Discharge Date Admission Date: October 23, 2021 Subjective Patient is seen and examined at bedside No new complaints Discussed with ID today Wound culture growing Rosa Denies any chest pain, shortness of breath, dizziness, nausea, abdominal pain Review of Systems Review of Systems: All systems reviewed & are unremarkable except as noted in Subjective Physical Exam Physical Exam: Physical Exam: Vitals signs as noted above General Appearance:Moderately built and nourished, no apparent distress Head: normocephalic, Atraumatic Eyes: normal inspection, EOMI Neck: supple, Trachea midline Respiratory/Chest: Normal breath sounds, CTA, No accessory muscle use Cardiovascular: S1, S2, No murmur Abdomen/GI:Soft, Non tender, Bowel sounds present Back: +Large gluteal wound Extremities/Musculoskeletal:normal inspection, B/L LE edema Neurologic/Psych:AAOX3, grossly no focal neurological deficits Skin: normal color, warm Results & Data Results & Data ([facility]) Vital Signs (Past 12 Hours) Vital Signs Temp Pulse Resp BP Pulse Ox 11/01/21 08:06 36.9 C 82 16 145/82 H 95 Laboratory Results Short CBC 11/01/21 Range/Units 09:19 WBC 5.06 (4.8-10.8) K/uL Hgb 12.4 (12.0-16.0) g/dL Hct 39.0 (37-47) % Plt Count 314 (130-400) K/uL BMP 11/01/21 09:19 Sodium 138 Potassium 3.4 L Chloride 104 Carbon Dioxide 26 BUN 19 H Creatinine 0.78 Glucose 118 H Calcium 9.0 (1) Gluteal cleft wound Encounter type: initial encounter Laterality: unspecified laterality Qualified Code(s): S31.809A - Unspecified open wound of unspecified buttock, initial encounter
[2021-11-01] MEDS: ENOXAPARIN INJ 40 MG/0.4 ML SYR SQ SCH (19:35)
[2021-11-02] MEDS: CEFEPIME 2,000 MG in SYRINGE 0 ML IV SCH ×2 (04:05→15:16)
[2021-11-02] MEDS: LEVOTHYROXINE SODIUM 100 MCG TABLET PO SCH (06:18)
[2021-11-02] MEDS: ACETAMINOPHEN 325 MG TAB PO PRN ×3 (06:18→20:06)
[2021-11-02] MEDS: LACTOBACILLUS ACIDOPHILUS 1 GM PACK PO SCH ×3 (08:57→17:45)
[2021-11-02] MEDS: tiZANidine HCL 4 MG TABLET PO SCH ×4 (09:00→20:02)
[2021-11-02] MEDS: GABAPENTIN 800 MG TAB PO SCH ×3 (09:01→20:02)
[2021-11-02] MEDS: hydroCHLOROthiazide 25 MG TAB PO SCH (09:01)
[2021-11-02] MEDS: SERTRALINE HCL 100 MG TABLET PO SCH (09:01)
[2021-11-02] MEDS: OXYBUTYNIN CHLORIDE 5 MG TAB PO SCH ×4 (09:01→20:02)
[2021-11-02] MEDS: amLODIPine BESYLATE 5 MG TAB PO SCH (09:02)
[2021-11-02] MEDS: FLUCONAZOLE 100 MG TAB PO SCH (09:02)
[2021-11-02] MEDS: GLATIRAMER SC SCH (09:06)
[2021-11-02] MEDS: DAPTOmycin 250 MG in SYRINGE 0 ML IV SCH (09:07)
--- NOTE | 2021-11-02 12:47 | Hospitalist Progress Note ---
Date of Service November 02, 2021 Assessment & Plan (1) Gluteal cleft wound: Plan: Patient presented from home with reports of worsening gluteal cleft wound x2 weeks. Did not appear septic. -CT pelvis negative for abscess and osteomyelitis -Blood cultures negative to date Wound culture mixed skin martin Deep wound culture growing Rosa Was on daptomycin, Zosyn>> transitioned to cefepime and daptomycin. Day 10 Dr Kunz discussed with ID : Suggested to continue cefepime, daptomycin for 2-week course or ciprofloxacin and linezolid Continue wound care Appreciate surgery input S/P debridement on 10/31/20 Dr Kunz discussed with ID about wound culture growing Rosa, suggested to start on fluconazole for 2 weeks. Day 2 Monitor QTC while on fluconazole. QTc today is 453 (2) Multiple sclerosis: Plan: -Follows with [facility] neurology -Continue home meds (3) Hypothyroidism (acquired): Plan: -Continue levothyroxine (4) Depression: Plan: -Continue home meds (5) DVT prophylaxis: Plan: -SQ Lovenox Admission and Anticipated Discharge Date Admission Date: October 23, 2021 Subjective Patient seen and examined Reports occasional discomfort in the buttock around the wound. Denies any chest pain, cough, shortness of breath Denies any fevers, chills, nausea, abdominal pain, diarrhea Physical Exam Constitutional: + well hydrated; no acute distress Eyes: PERRL, conjunctivae normal, anicteric sclerae ENMT: external ear and nose normal, oropharynx normal Respiratory: normal respiratory effort, lungs clear to auscultation Cardiovascular: Rate/Rhythm: regular rate and regular rhythm S1-S2 Gastrointestinal (Abdomen): normal bowel sounds, soft, nontender, no hepatosplenomegaly Skin: Dressing over gluteal wound Neurologic: AOx3, paraparesis (chronic from MS) Genitourinary: Espino in situ Results & Data Results & Data ([facility]) Vital Signs (Past 12 Hours) Vital Signs Temp Pulse Resp BP Pulse Ox 11/02/21 07:29 36.9 C 76 18 160/85 H 93 (1) Gluteal cleft wound Encounter type: initial encounter Laterality: unspecified laterality Qualified Code(s): S31.809A - Unspecified open wound of unspecified buttock, initial encounter
--- NOTE | 2021-11-02 13:01 | Electrocardiogram Report ---
Test Reason : Blood Pressure : / mmHG Vent. Rate : 070 BPM Atrial Rate : 070 BPM P-R Int : 146 ms QRS Dur : 082 ms QT Int : 420 ms P-R-T Axes : 000 114 109 degrees QTc Int : 453 ms Sinus rhythm with Premature atrial complexes Lateral infarct , age undetermined Abnormal ECG When compared with ECG of 01-NOV-2021 13:57, Premature atrial complexes are now Present QRS axis Shifted right Nonspecific T wave abnormality no longer evident in Inferior leads T wave inversion no longer evident in Anterolateral leads Confirmed by Edmond Goldman ([id number]) on 11/02/2021 1:01:00 PM Referred By: REFERRED SELF Confirmed By:Edmond Goldman
[2021-11-02] MEDS ORDERED: GLATIRAMER ACETATE SQ SCH (16:00)
[2021-11-02] MEDS: ENOXAPARIN INJ 40 MG/0.4 ML SYR SQ SCH (20:02)
[2021-11-03] MEDS: ACETAMINOPHEN 325 MG TAB PO PRN ×2 (01:38→10:26)
[2021-11-03] MEDS: CEFEPIME 2,000 MG in SYRINGE 0 ML IV SCH ×2 (04:33→16:09)
[2021-11-03] MEDS: LEVOTHYROXINE SODIUM 100 MCG TABLET PO SCH (05:51)
[2021-11-03 06:45] LABS: Hematocrit (blood only) 39.1 % (37-47); Hemoglobin 12.3 g/dL (12.0-16.0); Mean Corpuscular Hemoglobin 28.7 pg (25-34); Mean Corpuscular Hgb Conc 31.5 g/dL (32-36); Mean Corpuscular Volume 91.1 fL (80-100); Mean Platelet Volume 10.1 fL (7.4-10.4); Platelet Count 282 K/uL (130-400); RDW Coefficient of Variation 14.9 % (11.5-14.5); RDW Standard Deviation 49.3 fL (36.4-46.3); Red Blood Count 4.29 M/uL (4.2-5.4); White Blood Count 4.95 K/uL (4.8-10.8)
[2021-11-03 07:17] LABS: BUN Creatinine Ratio 25.9 (10-20); Calcium 9.3 mg/dl (8.5-10.1); Creatinine Clr Calc Pharmacy 76.5 ml/min; Est GFR (African American) 88.8 ml/min; Est GFR (Non-African American) 76.6 ml/min; Potassium 3.9 mmol/L (3.5-5.1)
[2021-11-03] MEDS: hydroCHLOROthiazide 25 MG TAB PO SCH (09:10)
[2021-11-03] MEDS: GABAPENTIN 800 MG TAB PO SCH ×3 (09:10→20:41)
[2021-11-03] MEDS: amLODIPine BESYLATE 5 MG TAB PO SCH (09:11)
[2021-11-03] MEDS: FLUCONAZOLE 100 MG TAB PO SCH (09:11)
[2021-11-03] MEDS: tiZANidine HCL 4 MG TABLET PO SCH ×4 (09:11→20:42)
[2021-11-03] MEDS: SERTRALINE HCL 100 MG TABLET PO SCH (09:11)
[2021-11-03] MEDS: LACTOBACILLUS ACIDOPHILUS 1 GM PACK PO SCH ×3 (09:11→16:11)
[2021-11-03] MEDS: OXYBUTYNIN CHLORIDE 5 MG TAB PO SCH ×4 (09:12→20:42)
[2021-11-03] MEDS: DAPTOmycin 250 MG in SYRINGE 0 ML IV SCH (09:18)
--- NOTE | 2021-11-03 15:06 | Hospitalist Progress Note ---
Date of Service November 03, 2021 Assessment & Plan (1) Gluteal cleft wound: Plan: Patient presented from home with reports of worsening gluteal cleft wound x2 weeks. Did not appear septic. -CT pelvis negative for abscess and osteomyelitis -Blood cultures negative to date Wound culture mixed skin martin Deep wound culture growing Rosa Was on daptomycin, Zosyn>> transitioned to cefepime and daptomycin. Day 11 Dr Kunz discussed with ID : Suggested to continue cefepime, daptomycin for 2-week course or ciprofloxacin and linezolid Continue wound care Appreciate surgery input S/P debridement on 10/31/20 Dr Kunz discussed with ID about wound culture growing Rosa, suggested to start on fluconazole for 2 weeks. Day 3 Monitor QTC while on fluconazole. QTc today is 458 Patient/ at bedside report patient has special mattress supposed to be delivered this weekend due to patient's MS, paraplegia and wounds Will keep inpatient till everything is set up for dc home Will keep vazquez in as patient's paraplegia and occasional incontinence will not allow wound healing. Will dc on this (2) Multiple sclerosis: Plan: -Follows with [facility] neurology -Continue home meds (3) Hypothyroidism (acquired): Plan: -Continue levothyroxine (4) Depression: Plan: -Continue home meds (5) DVT prophylaxis: Plan: -SQ Lovenox Admission and Anticipated Discharge Date Admission Date: October 23, 2021 Subjective Patient seen and examined Reports no discomfort in the buttock around the wound today Denies any chest pain, cough, shortness of breath Denies any fevers, chills, nausea, abdominal pain, diarrhea Reported occasional neuropathic pains (chronic) in the legs earlier today which is currently resolved Physical Exam Constitutional: + well hydrated; no acute distress Eyes: PERRL, conjunctivae normal, anicteric sclerae ENMT: external ear and nose normal, oropharynx normal Respiratory: normal respiratory effort, lungs clear to auscultation Cardiovascular: Rate/Rhythm: regular rate and regular rhythm S1 S2 Gastrointestinal (Abdomen): normal bowel sounds, soft, nontender, no hepatosplenomegaly Neurologic: AOx3. Paraplegic Genitourinary: Vazquez in situ Results & Data Results & Data ([facility]) Vital Signs (Past 12 Hours) Vital Signs Temp Pulse Resp BP Pulse Ox 11/03/21 07:05 36.9 C 76 16 158/73 H 92 Laboratory Results Abnormal lab results 11/03/21 11/03/21 Range/Units 05:44 05:44 MCHC 31.5 L (32-36) g/dL RDW Std Deviation 49.3 H (36.4-46.3) fL RDW Coeff of Shreya 14.9 H (11.5-14.5) % BUN 22 H (7-18) mg/dl BUN/Creatinine Ratio 25.9 H (10-20) (1) Gluteal cleft wound Encounter type: initial encounter Laterality: unspecified laterality Qualified Code(s): S31.809A - Unspecified open wound of unspecified buttock, initial encounter
[2021-11-03] MEDS: ENOXAPARIN INJ 40 MG/0.4 ML SYR SQ SCH (20:41)
--- NOTE | 2021-11-03 22:19 | Electrocardiogram Report ---
Test Reason : Blood Pressure : / mmHG Vent. Rate : 069 BPM Atrial Rate : 069 BPM P-R Int : 152 ms QRS Dur : 078 ms QT Int : 428 ms P-R-T Axes : 003 017 040 degrees QTc Int : 458 ms Normal sinus rhythm Nonspecific ST abnormality When compared with ECG of 02-Nov-2021 07:58, Limb lead reversal is no longer present Confirmed by Nicolas Anthony ([id number]) on 11/03/2021 10:19:47 PM Referred By: REFERRED SELF Confirmed By:Nicolas Anthony
[2021-11-03] MEDS ORDERED: SODIUM CHLORIDE 0.9% 500 ML IV SCH (22:45)
[2021-11-04] MEDS: CEFEPIME 2,000 MG in SYRINGE 0 ML IV SCH ×2 (03:47→17:20)
[2021-11-04] MEDS: ACETAMINOPHEN 325 MG TAB PO PRN ×2 (04:03→20:34)
[2021-11-04] MEDS: LEVOTHYROXINE SODIUM 100 MCG TABLET PO SCH (05:50)
[2021-11-04] MEDS: hydroCHLOROthiazide 25 MG TAB PO SCH (08:00)
[2021-11-04] MEDS: SERTRALINE HCL 100 MG TABLET PO SCH (08:00)
[2021-11-04] MEDS: GABAPENTIN 800 MG TAB PO SCH ×4 (08:00→20:35)
[2021-11-04] MEDS: tiZANidine HCL 4 MG TABLET PO SCH ×4 (08:00→20:36)
[2021-11-04] MEDS: LACTOBACILLUS ACIDOPHILUS 1 GM PACK PO SCH (08:01)
[2021-11-04] MEDS: FLUCONAZOLE 100 MG TAB PO SCH (08:01)
[2021-11-04] MEDS: OXYBUTYNIN CHLORIDE 5 MG TAB PO SCH ×4 (08:01→20:36)
[2021-11-04] MEDS: amLODIPine BESYLATE 5 MG TAB PO SCH (08:01)
[2021-11-04] MEDS: GLATIRAMER ACETATE SQ SCH (08:08)
[2021-11-04 09:44] LABS: Creatinine Clr Calc Pharmacy 80.4 ml/min; Est GFR (African American) 94.2 ml/min; Est GFR (Non-African American) 81.3 ml/min
[2021-11-04] MEDS: DAPTOmycin 250 MG in SYRINGE 0 ML IV SCH (10:16)
--- NOTE | 2021-11-04 11:59 | Hospitalist Progress Note ---
Date of Service November 04, 2021 Assessment & Plan (1) Gluteal cleft wound: Plan: Patient presented from home with reports of worsening gluteal cleft wound x2 weeks. Did not appear septic. -CT pelvis negative for abscess and osteomyelitis -Blood cultures negative to date Wound culture mixed skin martin Deep wound culture growing Rosa Was on daptomycin, Zosyn>> transitioned to cefepime and daptomycin. Day 12 Dr Kunz discussed with ID : Suggested to continue cefepime, daptomycin for 2-week course or ciprofloxacin and linezolid Continue wound care. has also learned the wound dressing Appreciate surgery input S/P debridement on 10/31/20 Dr Kunz discussed with ID about wound culture growing Rosa, suggested to start on fluconazole for 2 weeks. Day 4 Monitor QTC while on fluconazole. Patient's special mattress supposed delivered today Will keep inpatient to discharge on sunday after completion of IV antibiotics Will keep vazquez in as patient's paraplegia and occasional incontinence will not allow wound healing. Will dc on this (2) Multiple sclerosis: Plan: -Follows with [facility] neurology -Continue home meds (3) Hypothyroidism (acquired): Plan: -Continue levothyroxine (4) Depression: Plan: -Continue home meds (5) DVT prophylaxis: Plan: -SQ Lovenox Admission and Anticipated Discharge Date Admission Date: October 23, 2021 Subjective Patient seen and examined Reports no pain at wound site Denies any chest pain, cough, shortness of breath Denies any fevers, chills, nausea, abdominal pain, diarrhea Physical Exam Constitutional: + well hydrated; no acute distress Eyes: PERRL, conjunctivae normal, anicteric sclerae ENMT: external ear and nose normal, oropharynx normal Respiratory: normal respiratory effort, lungs clear to auscultation Cardiovascular: Rate/Rhythm: regular rate and regular rhythm S1 S2 Gastrointestinal (Abdomen): normal bowel sounds, soft, nontender, no hepatosplenomegaly Skin: Wound dressing over buttock Neurologic: AOX3, paraplegic Genitourinary: Vazquez in situ Results & Data Results & Data ([facility]) Vital Signs (Past 12 Hours) Vital Signs Temp Pulse Resp BP Pulse Ox 11/04/21 07:50 37 C 69 16 170/78 H 95 (1) Gluteal cleft wound Encounter type: initial encounter Laterality: unspecified laterality Qualified Code(s): S31.809A - Unspecified open wound of unspecified buttock, initial encounter
[2021-11-04] MEDS: ADVANCED PROBIOTIC 1250 MG CAPSULE PO SCH ×2 (12:10→17:20)
--- NOTE | 2021-11-04 16:15 | Electrocardiogram Report ---
Test Reason : Blood Pressure : / mmHG Vent. Rate : 064 BPM Atrial Rate : 064 BPM P-R Int : 198 ms QRS Dur : 108 ms QT Int : 424 ms P-R-T Axes : -01 032 050 degrees QTc Int : 437 ms Poor data quality, interpretation may be adversely affected Normal sinus rhythm Nonspecific ST and T wave abnormality Abnormal ECG When compared with ECG of 03-NOV-2021 06:09, QRS duration has increased ST now depressed in Anterior leads T wave inversion more evident in Anterior leads Confirmed by Edmond Goldman ([id number]) on 11/04/2021 4:14:52 PM Referred By: REFERRED SELF Confirmed By:Edmond Goldman
[2021-11-04] MEDS: ENOXAPARIN INJ 40 MG/0.4 ML SYR SQ SCH (20:34)
[2021-11-05] MEDS: CEFEPIME 2,000 MG in SYRINGE 0 ML IV SCH (03:58)
[2021-11-05] MEDS: LEVOTHYROXINE SODIUM 100 MCG TABLET PO SCH (06:08)
[2021-11-05] MEDS: ACETAMINOPHEN 325 MG TAB PO PRN ×2 (06:21→14:36)
[2021-11-05] MEDS: amLODIPine BESYLATE 5 MG TAB PO SCH (08:18)
[2021-11-05] MEDS: GABAPENTIN 800 MG TAB PO SCH ×3 (08:18→20:45)
[2021-11-05] MEDS: FLUCONAZOLE 100 MG TAB PO SCH (08:18)
[2021-11-05] MEDS: hydroCHLOROthiazide 25 MG TAB PO SCH (08:18)
[2021-11-05] MEDS: SERTRALINE HCL 100 MG TABLET PO SCH (08:18)
[2021-11-05] MEDS: OXYBUTYNIN CHLORIDE 5 MG TAB PO SCH ×4 (08:18→20:46)
[2021-11-05] MEDS: tiZANidine HCL 4 MG TABLET PO SCH ×4 (08:18→20:46)
[2021-11-05] MEDS: ADVANCED PROBIOTIC 1250 MG CAPSULE PO SCH ×3 (08:19→16:24)
[2021-11-05] MEDS: DAPTOmycin 250 MG in SYRINGE 0 ML IV SCH (09:35)
--- NOTE | 2021-11-05 11:03 | Hospitalist Progress Note ---
Date of Service November 05, 2021 Assessment & Plan (1) Gluteal cleft wound: Plan: Patient presented from home with reports of worsening gluteal cleft wound x2 weeks. Did not appear septic. -CT pelvis negative for abscess and osteomyelitis -Blood cultures negative to date Wound culture mixed skin martin Deep wound culture growing Rosa Was on daptomycin, Zosyn>> transitioned to cefepime and daptomycin. Day 13 Dr Kunz discussed with ID : Suggested to continue cefepime, daptomycin for 2-week course or ciprofloxacin and linezolid Continue wound care. has also learned the wound dressing Appreciate surgery input S/P debridement on 10/31/20 Dr Kuzn discussed with ID about wound culture growing Rosa, suggested to start on fluconazole for 2 weeks. Day 5 Monitor QTC while on fluconazole. Patient's special mattress already delivered Plan to dc tomorrow after completion of IV antibiotics Will keep vazquez in as patient's paraplegia and occasional incontinence will not allow wound healing. Will dc on this (2) Multiple sclerosis: Plan: -Follows with [facility] neurology -Continue home meds (3) Hypothyroidism (acquired): Plan: -Continue levothyroxine (4) Depression: Plan: -Continue home meds (5) DVT prophylaxis: Plan: -SQ Lovenox Admission and Anticipated Discharge Date Admission Date: October 23, 2021 Subjective Patient seen and examined Reports no pain at wound site Denies any chest pain, cough, shortness of breath Denies any fevers, chills, nausea, abdominal pain, diarrhea Physical Exam Constitutional: + well hydrated; no acute distress Eyes: PERRL, conjunctivae normal, anicteric sclerae ENMT: external ear and nose normal, oropharynx normal Respiratory: normal respiratory effort, lungs clear to auscultation Cardiovascular: Rate/Rhythm: regular rate and regular rhythm S1 S2 Gastrointestinal (Abdomen): normal bowel sounds, soft, nontender, no hepatosplenomegaly Neurologic: Aox3, paraplegic Genitourinary: Vazquez in situ Results & Data Results & Data ([facility]) Vital Signs (Past 12 Hours) Vital Signs Temp Pulse Resp BP Pulse Ox 11/05/21 07:31 36.9 C 67 16 146/78 H 94 (1) Gluteal cleft wound Encounter type: initial encounter Laterality: unspecified laterality Qualified Code(s): S31.809A - Unspecified open wound of unspecified buttock, initial encounter
[2021-11-05] MEDS: ENOXAPARIN INJ 40 MG/0.4 ML SYR SQ SCH (20:45)
[2021-11-06] MEDS: ACETAMINOPHEN 325 MG TAB PO PRN (05:16)
[2021-11-06] MEDS: LEVOTHYROXINE SODIUM 100 MCG TABLET PO SCH (06:13)
[2021-11-06] MEDS: tiZANidine HCL 4 MG TABLET PO SCH ×4 (08:06→21:09)
[2021-11-06] MEDS: SERTRALINE HCL 100 MG TABLET PO SCH (08:07)
[2021-11-06] MEDS: FLUCONAZOLE 100 MG TAB PO SCH (08:07)
[2021-11-06] MEDS: OXYBUTYNIN CHLORIDE 5 MG TAB PO SCH ×4 (08:07→21:09)
[2021-11-06] MEDS: amLODIPine BESYLATE 5 MG TAB PO SCH (08:07)
[2021-11-06] MEDS: GABAPENTIN 800 MG TAB PO SCH ×3 (08:07→21:10)
[2021-11-06] MEDS: ADVANCED PROBIOTIC 1250 MG CAPSULE PO SCH ×3 (08:08→17:26)
[2021-11-06] MEDS: hydroCHLOROthiazide 25 MG TAB PO SCH (08:38)
[2021-11-06] MEDS: DAPTOmycin 250 MG in SYRINGE 0 ML IV SCH (10:37)
--- NOTE | 2021-11-06 11:32 | Hospitalist Progress Note ---
Date of Service November 06, 2021 Assessment & Plan (1) Gluteal cleft wound: Plan: Patient presented from home with reports of worsening gluteal cleft wound x2 weeks. Did not appear septic. -CT pelvis negative for abscess and osteomyelitis -Blood cultures negative to date Wound culture mixed skin martin Deep wound culture growing Rosa Was on daptomycin, Zosyn>> transitioned to cefepime and daptomycin. Day 14. Completed today Dr Kunz discussed with ID : Suggested to continue cefepime, daptomycin for 2-week course or ciprofloxacin and linezolid Continue wound care. has also learned the wound dressing Appreciate surgery input S/P debridement on 10/31/20 Dr Kunz discussed with ID about wound culture growing Rosa, suggested to start on fluconazole for 2 weeks. Day 6 Patient's special mattress already delivered Will keep vazquez in as patient's paraplegia and occasional incontinence will not allow wound healing. Will dc on this Arrangements were made for discharge today. However, transport was rescheduled to tomorrow due to inclement weather/road conditions (2) Multiple sclerosis: Plan: -Follows with [facility] neurology -Continue home meds -Patient reports she is already on gabapentin 800mg AM, night and 1200mg in afternoon (3) Hypothyroidism (acquired): Plan: -Continue levothyroxine (4) Depression: Plan: -Continue home meds (5) Hypertension: Plan: BP had been fluctuating from borderline low to high Continue home HCTZ Was started on 2.5mg amlodipine during the hospital stay. Will continue (6) DVT prophylaxis: Plan: -SQ Lovenox Admission and Anticipated Discharge Date Admission Date: October 23, 2021 Subjective Patient seen and examined Reports no pain at wound site Denies any chest pain, cough, shortness of breath Denies any fevers, chills, nausea, abdominal pain, diarrhea Physical Exam Constitutional: + well hydrated; no acute distress Eyes: PERRL, conjunctivae normal, anicteric sclerae ENMT: external ear and nose normal, oropharynx normal Respiratory: normal respiratory effort, lungs clear to auscultation Cardiovascular: Rate/Rhythm: regular rate and regular rhythm S1 S2 Gastrointestinal (Abdomen): normal bowel sounds, soft, nontender, no hepatosplenomegaly Musculoskeletal: No pedal edema. Wound dressing over buttock Neurologic: AOX3. Paraplegia Genitourinary: Vazquez in situ Results & Data Results & Data ([facility]) Vital Signs (Past 12 Hours) Vital Signs Temp Pulse Resp BP Pulse Ox 11/06/21 07:23 36.9 C 69 16 151/78 H 92 11/05/21 23:35 36.7 C 69 14 96/61 L 95 (1) Gluteal cleft wound Encounter type: initial encounter Laterality: unspecified laterality Qualified Code(s): S31.809A - Unspecified open wound of unspecified buttock, initial encounter
[2021-11-06] MEDS: ENOXAPARIN INJ 40 MG/0.4 ML SYR SQ SCH (21:10)
[2021-11-07] MEDS: LEVOTHYROXINE SODIUM 100 MCG TABLET PO SCH (05:27)
[2021-11-07 07:21] LABS: Creatinine Clr Calc Pharmacy 83.5 ml/min; Est GFR (African American) 98.6 ml/min; Est GFR (Non-African American) 85.1 ml/min
[2021-11-07] MEDS: tiZANidine HCL 4 MG TABLET PO SCH ×2 (08:04→12:44)
[2021-11-07] MEDS: ADVANCED PROBIOTIC 1250 MG CAPSULE PO SCH ×2 (08:05→12:43)
[2021-11-07] MEDS: hydroCHLOROthiazide 25 MG TAB PO SCH (08:05)
[2021-11-07] MEDS: OXYBUTYNIN CHLORIDE 5 MG TAB PO SCH ×2 (08:06→12:43)
[2021-11-07] MEDS: amLODIPine BESYLATE 5 MG TAB PO SCH (08:06)
[2021-11-07] MEDS: FLUCONAZOLE 100 MG TAB PO SCH (08:07)
[2021-11-07] MEDS: GABAPENTIN 800 MG TAB PO SCH ×2 (08:08→12:45)
[2021-11-07] MEDS: SERTRALINE HCL 100 MG TABLET PO SCH (08:08)
--- NOTE | 2021-11-07 12:18 | Discharge Summary ---
Date of Service November 07, 2021 Admission HPI Per Admitting Provider 56-year-old female with PMH multiple sclerosis, hypothyroidism, depression, and other problems to below who presents to the ED for evaluation of a buttock wound. Patient is bed/chair bound from multiple sclerosis. She is able to transfer via sliding. Patient is mostly independent in her care. Reports developing a sacral/buttock wound about 2 weeks ago. Wound has been progressively getting worse. Patient denies fevers and chills. Denies chest pain or shortness of breath. No lightheadedness, dizziness, diaphoresis, syncopal events. Denies abdominal pain, nausea, vomiting, diarrhea. Urinary symptoms. In the ED, patient is hemodynamically stable and labs are unremarkable. Exam reveals a large gluteal cleft wound. CT pelvis shows the presence of a ulceration at the upper aspect of the buttocks cleft with no associated abscess. There is surrounding cellulitis. No CT evidence for osteomyelitis. Patient was given IV daptomycin, IV Zosyn, IVF. Admission Exam Per Admitting Provider Constitutional: WD/WN, vitals as above Eyes: PERRL, conjunctivae normal, anicteric sclerae ENMT: external ear and nose normal, oropharynx normal Respiratory: normal respiratory effort, lungs clear to auscultation Cardiovascular: Rate/Rhythm: regular rate and regular rhythm Vessels: normal peripheral pulses Extremities: no edema Gastrointestinal (Abdomen): normal bowel sounds, soft, nontender, no hepatosplenomegaly Musculoskeletal: Extremities: no cyanosis and no clubbing Chronic BL LE weakness Skin: no rashes, warm and dry Large, deep, gluteal cleft wound with surrounding erythema. Foul-smelling. Neurologic: PERRL, EOMI, accommodation nl, no face palsy, no dysarthria Psychiatric: A+Ox3, euthymic affec Principal Diagnosis Gluteal wound infection Hypertension Discharge Exam Constitutional + well hydrated; no acute distress Eyes PERRL, conjunctivae normal, anicteric sclerae ENMT external ear and nose normal, oropharynx normal Respiratory normal respiratory effort, lungs clear to auscultation Cardiovascular Rate/Rhythm: regular rate and regular rhythm S1 S2 Gastrointestinal (Abdomen) normal bowel sounds, soft, nontender, no hepatosplenomegaly Musculoskeletal No pedal edema Dressing over gluteal wound Neurologic Aox3, paraplegic Psychiatric A+Ox3, euthymic affect Discharge Data Allergies Allergy/AdvReac Type Severity Reaction Status Date / Time Penicillins AdvReac Gastrointestinal Verified 10/23/21 09:18 Upset Consultations 10/23/21 12:03 ED Decision to Admit Stat 10/23/21 12:49 Consult General Surgery Routine 10/23/21 15:11 Consult Infectious Diseases Routine Ordered Studies 10/23/21 09:21 CT pelvis w/IV con only Stat Hospital Course (1) Gluteal cleft wound: Patient presented from home with reports of worsening gluteal cleft wound x2 weeks. Did not appear septic. -CT pelvis negative for abscess and osteomyelitis -Blood cultures negative to date Wound culture mixed skin martin Deep wound culture grew Rosa Was on daptomycin, Zosyn>> transitioned to cefepime and daptomycin. Completed inpatient Dr Kunz discussed with ID : Suggested to continue cefepime, daptomycin for 2-week course or ciprofloxacin and linezolid Appreciate surgery input S/P debridement on 10/31/20 Dr Kunz discussed with ID about wound culture growing Rosa, suggested to start on fluconazole for 2 weeks. Today is Day 7. Discharged on 7 more days Patient's special mattress already delivered Continue wound care at home Home health services Follow up with wound care clinic Will keep vazquez in as patient's paraplegia and occasional incontinence will not allow wound healing. Will dc on this Arrangements were made for discharge today. However, transport was rescheduled to tomorrow due to inclement weather/road conditions (2) Multiple sclerosis: -Follows with [facility] neurology -Continue home meds -Patient reports she is on gabapentin 800mg AM, night and 1200mg in afternoon (3) Hypothyroidism (acquired): -Continue levothyroxine (4) Depression: -Continue home meds (5) Hypertension: BP had been fluctuating from borderline low to high Continue home HCTZ Was started on 2.5mg amlodipine during the hospital stay. Will continue Total Time Total Time Spent Total Time Spent (In Minutes): 35 Total Time Includes: Examination of the Patient, Discharge Planning and Medication Reconciliation Discharge Plan Discharge Items Patient Disposition: Home - Home Health Services Reason For Visit: BUTTOCK WOUND Discharge Diagnosis: Buttock (Gluteal wound infection) Hypertension Activity: Resume your previous activity Non-emergency contact: Primary Care Provider Call non-emergency contact if: you have any medication questions and your symptoms worsen Follow-up/Referrals: [facility] [Other] ([address] [place] [id number] The wound clinic does not provide in home visits. If interested in a clinic visit, please call the number provided. ) Charu Solorzano CRNP [Primary Care Provider] - 11/09/21 2:00 pm (Home Visit by provider) Diet: Heart Healthy Addtl Attending Provider Instructions: Mrs. Cary You came to the hospital complaining of buttock wound for about 2 weeks that has been getting worse. You were evaluated for this and had debridement by the surgeon. You were started on antibiotics and antifungal based on culture results. You have completed antibiotics. Please continue to take fluconazole [antifungal] to complete treatment. Please continue wound care as instructed. Please continue regular turning and offloading pressure from the wound area. Will keep Vazquez for now to aid wound healing and can be removed by home health services as wound improves. You were also started on low dose amlodipine for better BP control. It is important that you follow-up with your primary care doctor It was a pleasure taking care of you Addtl Java [employer] Provider Instructions: For wound Irrigate with saline using 35cc syringe and 18G blunt needle. Fill wound with Aquacel AG x 2 sheets Cover with large optifoam Change daily and as needed Turn of your buttock at least every 2 hours Pending Studies at Discharge: No Stand-Alone Forms: My [facility], Smoking Cessation Medications and DC Order Prescriptions: New amlodipine [Norvasc] 5 mg Tablet 2.5 mg PO QAM Qty: 30 RF: 0 fluconazole 200 mg tablet 200 mg PO DAILY Qty: 7 RF: 0 Continued tizanidine 4 mg tablet 4 mg PO QID RF: 0 sertraline 100 mg tablet 100 mg PO DAILY RF: 0 levothyroxine 100 mcg tablet 100 mcg PO DAILY RF: 0 gabapentin 800 mg tablet 800 mg PO UD RF: 0 cyanocobalamin (vitamin B-12) 1,000 mcg/mL solution 1 mcg subcut MONTHLY RF: 0 hydrochlorothiazide 25 mg Tablet 25 mg PO DAILY RF: 0 oxybutynin chloride 5 mg tablet 5 mg PO QID RF: 0 cholecalciferol (vitamin D3) [Vitamin D3] 25 mcg (1,000 unit) Tablet 25 mcg PO DAILY RF: 0 glatiramer 40 mg/mL syringe 40 mg SUBCUT MOWEFR RF: 0 Discharge Orders: Discharge Order (Routine); Ordered 11/07/21 Ordered By: Trinity Rich Admission Data Admit Date/Time: 10/23/21 12:11 Attending Provider: Trinity Rich I. Admit Provider: Perry Wood Primary Care Provider: Charu Solorzano Other Providers: Konrad Haines ; Debbie Newberry ; Perry Wood ; Elan Sloan ; Vu Burr ; Misael Griffin I. ; Ron Elkins II ; Soumya Mcelroy ; Miguel Solis ; Fito Downey ; Francesco Rodrigez [facility] ; Neto Kunz Other Interventions: Discharge Summary Assessment (RN) Last Done: 11/07/21 13:26
[2021-11-07] MEDS: GLATIRAMER ACETATE SQ SCH (12:49)
== END 2021-11-07 13:45 | disposition home health service (06) | DRG 579 ==
LOC: ED 08:30 → EDINP 12:11 → SUATTDRO 12:11 → 3N 15:05